=== PATIENT | female | born 1980 | race Caucasian/White ===

== ENCOUNTER 2021-03-07 11:08 | Outpatient (CLI) | payer MEDICARE, MEDICAID, SELFPAY ==
--- NOTE | 2021-03-23 18:15 | WPDHOMESLEEP ---
Sleep Study - Home Unattended Date of Study: 03/07/21 Ordering Provider: Bo Richmond APRN Interpreting Provider: Mone Simth MD Home Sleep Study Type: Apnea Link Air Height: 1.7 m Weight: 113.398 kg Body Mass Index: 39.1 Neck Circumference (inches): 16.75 [place]: 24 Reason for Sleep Study Hypersomnolence Sleep History Mone Contreras is a 40-year-old female who stops breathing when she sleeps. She only sleeps for 1-3 hours at a time. she took a Remeron on the night of this home sleep test and says that she had a wonderful night of sleep. She has difficulty falling asleep, she wakes during the night, she has excessive daytime sleepiness and difficulty waking in the morning. She constantly awakens from sleep feeling short of breath, constantly has heartburn, belching and coughing at night, constantly snores loudly and has trouble sleep with a cold. She constantly gasps for breath during the night. She constantly sweats at night and notices her heart pounding or beating irregularly night. She constantly falls asleep during the day, involuntarily and she constantly falls asleep while driving. She always falls asleep while exerting physical effort. She constantly has loss of muscle tone with strong emotion. She always has problems in the daytime due to excessive sleepiness. She does not feel paralyzed on waking or falling asleep and does not have vivid dreamlike scenes upon awakening or falling asleep. She constantly is afraid to go to sleep. She constantly has nightmares, always remembers her dreams, always has racing thoughts as well as feelings of sadness, depression and anxiety. She constantly has muscular tension and notices parts of her body jerking. She constantly kicks at night, has crawling and aching feelings in her legs, has leg pain at night, morning jaw pain. She has had all of her teeth extracted but previously did grind her teeth during sleep. She constantly is bothered by pain during the day, awakened by pain at night, wakes up feeling stiff in the morning with sore achy muscles and pain in the neck and spine. She is disabled, has problems with headaches, memory problems, fatigue, panic, concentration difficulties, insomnia and she takes antacids regularly. She has gained weight in the last year, exact amount is not known. Normal bedtime is between 9:00 p.m. and 10:00 p.m. taking an hour or longer to fall asleep. She wakes up between midnight and 2:00 am, will watch television or play games on the phone. It may take her several hours to fall asleep again. She takes naps in the evening or afternoon. A short nap may be refreshing. She is drowsy after waking for 3 hours or longer. She feels the least refreshed in the afternoons. Habits: Tobacco half pack per day. No caffeine, alcohol, or recreational drugs PMFSH Past Medical History Medical History Anxiety Asthma Body mass index (bmi) 38.0-38.9, adult (09/19/18) Chronic migraine Chronic pain syndrome Fibromyalgia GERD (gastroesophageal reflux disease) History of cervical cancer HTN (hypertension) Impaired glucose tolerance Severe bipolar disorder Surgical History Surgical History History of appendectomy History of Family History Family History Father Family history of mental disorder Cerebrovascular accident Family history of Alzheimer's disease Family history of cardiovascular disease Heart disease Mother Hypertension Sibling Heart disease Narcolepsy Daughter Obesity Bipolar disorder Schizophrenia Other Asthma Depression Family history of alcoholism Family history of bipolar disorder Family history of lung disease Family history of malignant neoplasm of uterus Family history of migraine headaches Family history of obesity Family h
[2021-03-23 18:27] VITALS: BMI 39.1
== END 2021-03-08 10:57 | disposition home or self-care (01) ==
LOC: ANHCSM 11:09
PROVIDERS: PCP Family Medicine; Visit Provider Nurse Practitioner Family
DX: G47.10 Hypersomnia, unspecified (principal); G47.33 Obstructive sleep apnea (adult) (pediatric)
CPT/HCPCS: 95806

== ENCOUNTER → 2021-06-03 00:22 | Outpatient (CLI) | payer MEDICARE, MEDICAID, SELFPAY ==
[2021-06-03 18:06] LABS: SARS-CoV-2 RNA PCR Negative
== END ==
PROVIDERS: PCP Family Medicine; Visit Provider Internal Medicine Critical Care Medicine
DX: Z01.812 Encounter for preprocedural laboratory examination (principal); Z20.822 Contact with and (suspected) exposure to COVID-19
CPT/HCPCS: C9803; U0003; U0005

== ENCOUNTER 2021-06-06 07:38 | Outpatient (CLI) | payer MEDICARE, MEDICAID, SELFPAY ==
--- NOTE | 2021-06-19 13:40 | WPDSLEEPSTUD ---
Sleep Study Date of Study: 06/06/21 <Kylah Suero, DO - Last Filed: 06/19/21 15:29> Ordering Provider: Bo Richmond APRN <Kylah Suero, DO - Last Filed: 06/19/21 15:29> Interpreting Physician: Kylah Suero DO <Kylah Suero DO - Last Filed: 06/19/21 15:29> Sleep Study Type: CPAP Titration <Kylah Suero DO - Last Filed: 06/19/21 15:29> Height: 1.7 m <Kylah Suero DO - Last Filed: 06/19/21 15:29> Weight: 122.47 kg <Kylah Suero DO - Last Filed: 06/19/21 15:29> Body Mass Index: 42.3 <Kylah Suero DO - Last Filed: 06/19/21 15:29> Neck Circumference (inches): 17 <Kylah Suero DO - Last Filed: 06/19/21 15:29> [place]: 24 <Kylah Suero DO - Last Filed: 06/19/21 15:29> Reason for Sleep Study The patient had a HSAT on 03/07/2021 using ApneaLink that showed an AHI of 40 and a minimum saturation of 40%. It was recommended that she have a PAP Titration. <Kylah Suero, DO - Last Filed: 06/19/21 15:29> Sleep History Mone Contreras is a 40-year-old female who stops breathing when she sleeps. She only sleeps for 1-3 hours at a time. she took a Remeron on the night of this home sleep test and says that she had a wonderful night of sleep. She has difficulty falling asleep, she wakes during the night, she has excessive daytime sleepiness and difficulty waking in the morning. She constantly awakens from sleep feeling short of breath, constantly has heartburn, belching and coughing at night, constantly snores loudly and has trouble sleep with a cold. She constantly gasps for breath during the night. She constantly sweats at night and notices her heart pounding or beating irregularly night. She constantly falls asleep during the day, involuntarily and she constantly falls asleep while driving. She always falls asleep while exerting physical effort. She constantly has loss of muscle tone with strong emotion. She always has problems in the daytime due to excessive sleepiness. She does not feel paralyzed on waking or falling asleep and does not have vivid dreamlike scenes upon awakening or falling asleep. She constantly is afraid to go to sleep. She constantly has nightmares, always remembers her dreams, always has racing thoughts as well as feelings of sadness, depression and anxiety. She constantly has muscular tension and notices parts of her body jerking. She constantly kicks at night, has crawling and aching feelings in her legs, has leg pain at night, morning jaw pain. She has had all of her teeth extracted but previously did grind her teeth during sleep. She constantly is bothered by pain during the day, awakened by pain at night, wakes up feeling stiff in the morning with sore achy muscles and pain in the neck and spine. She is disabled, has problems with headaches, memory problems, fatigue, panic, concentration difficulties, insomnia and she takes antacids regularly. She has gained weight in the last year, exact amount is not known. Normal bedtime is between 9:00 p.m. and 10:00 p.m. taking an hour or longer to fall asleep. She wakes up between midnight and 2:00 am, will watch television or play games on the phone. It may take her several hours to fall asleep again. She takes naps in the evening or afternoon. A short nap may be refreshing. She is drowsy after waking for 3 hours or longer. She feels the least refreshed in the afternoons. Habits: Tobacco half pack per day. No caffeine, alcohol, or recreational drugs <Kylah Suero, - Last Filed: 06/19/21 15:29> [facility] Past Medical History Medical History: Medical History Anxiety Asthma Body mass index (bmi) 38.0-38.9, adult (09/19/18) Chronic migraine Chronic pain syndrome Fibromyalgia GERD (gastroesophageal reflux disease) History of cervical cancer HTN (hypertension)
[2021-06-19 15:10] VITALS: BMI 42.3
== END 2021-06-07 06:26 | disposition home or self-care (01) ==
LOC: ANHCSM 07:39
PROVIDERS: PCP Family Medicine; Visit Provider Nurse Practitioner Family
DX: G47.33 Obstructive sleep apnea (adult) (pediatric) (principal)
CPT/HCPCS: 95811

== ENCOUNTER 2022-03-21 17:23 | Emergency (ER) | payer MEDICARE, MEDICAID, SELFPAY ==
--- NOTE | ~2022-03-21 | XR_ITS ---
EXAMINATION: XR chest 2V Exam Date/Time: 03/21/2022 17:37 CDT HISTORY: chest congestion, cough for 5 days Comparison: 10/31/2017. RESULT: Lines, tubes, and devices: None. Lungs and pleura: Clear. Cardiomediastinal silhouette: Stable. Other: No acute osseous or upper abdominal finding. IMPRESSION: No acute cardiopulmonary process. Reviewed, dictated and finalized at location K.
[2022-03-21 17:34] VITALS: BP 115/65; PULSE 70; RESP 18; TEMP 36.6; O2SAT 98
--- NOTE | 2022-03-21 17:57 | ED.URI ---
HPI - URI/Sore Throat General Chief Complaint: Upper Respiratory Infection Stated Complaint: chest congestiion Time Seen by Provider: 03/21/22 17:45 History of Present Illness HPI Narrative: Mone Contreras is a 41 yo female with a PMH of COPD, current smoking, high cholesterol, hypertension, pancreatitis, IBS, seizures, depression anxiety ,who comes to [facility] with complaints of wheezing and cough. She states that she is coughing up thick yellow mucus. She states that her symptoms started about a week ago and have gradually worsened. she has a senior engineering associate in [place] but is unable to get into his office for 2 weeks but she has adequate albuterol inhaler/nebulizer and her other medication Has not had a COVID-vaccine Related Data Home Medications Medication Instructions Recorded Confirmed atorvastatin 80 mg tablet 80 mg PO DAILY 07/14/19 03/21/22 gabapentin 300 mg capsule 300 mg PO DAILY 07/14/19 03/21/22 omeprazole 20 mg capsule,delayed 40 mg PO DAILY 07/14/19 01/31/21 release venlafaxine 100 mg tablet 100 mg PO TID 07/14/19 03/21/22 aripiprazole 5 mg tablet (Abilify) 5 mg PO DAILY 03/21/22 03/21/22 baclofen 10 mg tablet 10 mg TID 03/21/22 03/21/22 dexmethylphenidate 20 mg 20 mg PO DAILY 03/21/22 03/21/22 capsule,extended release [id number] ferrous sulfate 325 mg (65 mg 325 mg DAILY 03/21/22 03/21/22 iron) tablet (FeroSul) ipratropium bromide 0.02 % 2.5 ml inhalation Q6H 03/21/22 03/21/22 solution for inhalation lamotrigine 200 mg tablet 200 mg BID 03/21/22 03/21/22 lisinopril 40 mg tablet 40 mg DAILY 03/21/22 03/21/22 meloxicam 15 mg tablet 15 mg DAILY 03/21/22 03/21/22 norethindrone acetate 5 mg tablet 5 mg DAILY 03/21/22 03/21/22 triamcinolone acetonide 0.1 % 1 applic topical DIRECTED 03/21/22 03/21/22 topical cream Allergies Allergy/AdvReac Type Severity Reaction Status Date / Time codeine Allergy Mild HIVES,SYNCO Verified 03/21/22 17:43 PE acetaminophen Allergy Unknown RASH Verified 01/31/21 11:31 duloxetine [From Cymbalta] Allergy Other Verified 03/21/22 17:44 varenicline [From Chantix] Allergy Other Verified 03/21/22 17:43 tramadol AdvReac Intermediate itchy, Verified 03/21/22 17:43 dizzy MICONAZOLE NITRATE Allergy Unknown Hives Uncoded 03/21/22 17:43 MUSCLE RELAXER Allergy Unknown Unknown Uncoded 01/31/21 11:31 OXYCODONE HCL Allergy Unknown RASH Uncoded 01/31/21 11:31 Review of Systems Review of Systems: CONSTITUTIONAL: Denies fever, chills, sweats. EYES: Denies visual changes, redness, discharge. ENT: Denies rhinorrhea, congestion, sore throat, otalgia. CARDIOVASCULAR: Denies chest pain, palpitations, edema. RESPIRATORY: Has dyspnea, has wheezing, cough GASTROINTESTINAL: Denies abdominal pain, nausea, vomiting, diarrhea. GENITOURINARY: Denies dysuria, hematuria, abnormal discharge SKIN: Denies rash or itching. NEUROLOGIC: Denies numbness, or focal weakness. PSYCHIATRIC: Denies anxiety or depression. [facility] Past Medical History Medical History Anxiety Asthma Body mass index (bmi) 38.0-38.9, adult (09/19/18) Chronic migraine Chronic pain syndrome COPD (chronic obstructive pulmonary disease) Fibromyalgia GERD (gastroesophageal reflux disease) History of cervical cancer HTN (hypertension) Impaired glucose tolerance Severe bipolar disorder Surgical History Surgical History History of appendectomy History of Family History Family History Father Family history of mental disorder Cerebrovascular accident Family history of Alzheimer's disease Family history of cardiovascular disease Heart disease Mother Hypertension Sibling Heart disease Narcolepsy Daughter Obesity Bipolar disorder Schizophrenia Other Asthma Depression Family history of alcoholism Family
== END 2022-03-21 18:13 | disposition home or self-care (01) ==
PROVIDERS: Emergency Provider Nurse Practitioner; PCP Family Medicine
DX: J44.1 Chronic obstructive pulmonary disease with (acute) exacerbation (principal); F17.210 Nicotine dependence, cigarettes, uncomplicated; M79.7 Fibromyalgia; K21.9 Gastro-esophageal reflux disease without esophagitis; I10 Essential (primary) hypertension; E78.00 Pure hypercholesterolemia, unspecified; G40.909 Epilepsy, unspecified, not intractable, without status epilepticus; F31.9 Bipolar disorder, unspecified; F41.9 Anxiety disorder, unspecified; Z85.41 Personal history of malignant neoplasm of cervix uteri
CPT/HCPCS: 71046; 99213; G0463

== ENCOUNTER 2022-08-09 14:05 | Emergency (ER) | payer MEDICARE, MEDICAID, SELFPAY ==
--- NOTE | ~2022-08-09 | XR_ITS ---
Clinical Indication: Cough PA and lateral views of the chest: Comparison: 03/21/2022 Findings: The lungs are clear, without evidence of focal consolidation or pleural effusion. Cardiome diastinal silhouette is within normal limits. Bones and soft tissues are unremarkable. Impression: Normal chest. Reviewed, dictated and finalized at location [] H MAKER Impression: Normal chest.
[2022-08-09 14:23] VITALS: BP 143/93; PULSE 69; RESP 18; TEMP 36.7; O2SAT 96
--- NOTE | 2022-08-09 15:01 | ED.URI ---
HPI - URI/Sore Throat General Chief Complaint: Upper Respiratory Infection Stated Complaint: Pneumonia like symtoms Time Seen by Provider: 08/09/22 15:01 Source: patient, RN notes reviewed and old records reviewed Mode of arrival: ambulatory Limitations: no limitations History of Present Illness HPI Narrative: 41-year-old female presents to the [facility] with concerns for pneumonia. patient is currently a smoker. Has a significant past medical history. Denies fevers. Reports cough, earaches bilaterally. Symptoms for 3 weeks Related Data Home Medications Medication Instructions Recorded Confirmed atorvastatin 80 mg tablet 80 mg PO DAILY 07/14/19 08/09/22 omeprazole 20 mg capsule,delayed 40 mg PO DAILY 07/14/19 08/09/22 release venlafaxine 100 mg tablet 100 mg PO TID 07/14/19 08/09/22 aripiprazole 5 mg tablet (Abilify) 5 mg PO DAILY 03/21/22 08/09/22 baclofen 10 mg tablet 10 mg TID 03/21/22 08/09/22 dexmethylphenidate 20 mg 20 mg PO DAILY 03/21/22 08/09/22 capsule,extended release [id number] ferrous sulfate 325 mg (65 mg 325 mg DAILY 03/21/22 08/09/22 iron) tablet (FeroSul) ipratropium bromide 0.02 % 2.5 ml inhalation Q6H 03/21/22 08/09/22 solution for inhalation lamotrigine 200 mg tablet 200 mg BID 03/21/22 08/09/22 lisinopril 40 mg tablet 40 mg DAILY 03/21/22 08/09/22 meloxicam 15 mg tablet 15 mg DAILY 03/21/22 08/09/22 norethindrone acetate 5 mg tablet 5 mg DAILY 03/21/22 08/09/22 triamcinolone acetonide 0.1 % 1 applic topical DIRECTED 03/21/22 08/09/22 topical cream acetaminophen 325 mg tablet 4,000 mg PO Q6H PRN Pain 04/05/22 08/09/22 (Tylenol) gabapentin 300 mg capsule 1,100 mg PO DAILY 04/05/22 08/09/22 mirtazapine 15 mg tablet 15 mg DAILY 08/09/22 08/09/22 Allergies Allergy/AdvReac Type Severity Reaction Status Date / Time codeine Allergy Mild HIVES,SYNCO Verified 08/09/22 15:16 PE acetaminophen Allergy Unknown RASH Verified 08/09/22 15:16 duloxetine [From Cymbalta] Allergy Other Verified 08/09/22 15:16 oxycodone [From Percocet] Allergy Rash Verified 08/09/22 15:16 varenicline [From Chantix] Allergy Other Verified 08/09/22 15:16 fluticasone AdvReac Intermediate lumps on Verified 08/09/22 15:16 tongue tramadol AdvReac Intermediate itchy, Verified 08/09/22 15:16 dizzy MICONAZOLE NITRATE Allergy Unknown Hives Uncoded 08/09/22 15:16 MUSCLE RELAXER Allergy Unknown Unknown Uncoded 08/09/22 15:16 OXYCODONE HCL Allergy Unknown RASH Uncoded 08/09/22 15:16 Review of Systems Review of Systems: All systems reviewed & are unremarkable except as noted in HPI and below Constitutional: Constitutional: Reports no additional constitutional complaints Eyes: Eyes: Reports no additional eye complaints ENT: Reports as per HPI Cardiovascular: Cardiovascular: Reports no additional cardiovascular complaints, Denies chest pain and Denies dyspnea Respiratory: Respiratory: Reports as per HPI, Reports chest congestion, Reports cough and Reports dyspnea Gastrointestinal: Gastrointestinal: Reports no additional gastrointestinal complaints, Denies abdominal pain, Denies nausea and Denies vomiting Musculoskeletal: Musculoskeletal: Reports no additional musculoskeletal complaints Integumentary/Breasts: Skin/Breast: Reports system reviewed and no additional complaints, except as docu Neurologic: Reports system reviewed and no additional complaints, except as documented Psychiatric: Psychiatric: Reports no additional psychiatric complaints Allergic/Immunologic: Allergic/Immunologic: Reports no additional allergic/immunologic complaints PMFSH Past Medical History Medical History Anxiety Asthma Body mass index (bmi) 38.0-38.9, adult (09/19/18) Chronic migraine Chronic pain syndrome COPD (chronic obstructive pulmonary disease) Fibromyalgia GERD (gastroesophageal reflux disease) History of cervical cancer HTN (hypertension) Impaired
--- NOTE | 2022-08-09 15:06 | ED.URI ---
HPI - URI/Sore Throat General Chief Complaint: Upper Respiratory Infection Stated Complaint: Pneumonia like symtoms Time Seen by Provider: 08/09/22 15:01 Source: patient, RN notes reviewed and old records reviewed Mode of arrival: ambulatory Limitations: no limitations Related Data Home Medications Medication Instructions Recorded Confirmed atorvastatin 80 mg tablet 80 mg PO DAILY 07/14/19 07/26/22 omeprazole 20 mg capsule,delayed 40 mg PO DAILY 07/14/19 07/26/22 release venlafaxine 100 mg tablet 100 mg PO TID 07/14/19 07/26/22 aripiprazole 5 mg tablet (Abilify) 5 mg PO DAILY 03/21/22 07/26/22 baclofen 10 mg tablet 10 mg TID 03/21/22 07/26/22 dexmethylphenidate 20 mg 20 mg PO DAILY 03/21/22 07/26/22 capsule,extended release [id number] ferrous sulfate 325 mg (65 mg 325 mg DAILY 03/21/22 07/26/22 iron) tablet (FeroSul) ipratropium bromide 0.02 % 2.5 ml inhalation Q6H 03/21/22 07/26/22 solution for inhalation lamotrigine 200 mg tablet 200 mg BID 03/21/22 07/26/22 lisinopril 40 mg tablet 40 mg DAILY 03/21/22 07/26/22 meloxicam 15 mg tablet 15 mg DAILY 03/21/22 07/26/22 norethindrone acetate 5 mg tablet 5 mg DAILY 03/21/22 07/26/22 triamcinolone acetonide 0.1 % 1 applic topical DIRECTED 03/21/22 07/26/22 topical cream acetaminophen 325 mg tablet 4,000 mg PO Q6H PRN 04/05/22 07/26/22 (Tylenol) gabapentin 300 mg capsule 1,100 mg PO DAILY 04/05/22 07/26/22 Allergies Allergy/AdvReac Type Severity Reaction Status Date / Time codeine Allergy Mild HIVES,SYNCO Verified 07/26/22 10:46 PE acetaminophen Allergy Unknown RASH Verified 07/26/22 10:46 duloxetine [From Cymbalta] Allergy Other Verified 07/26/22 10:46 varenicline [From Chantix] Allergy Other Verified 07/26/22 10:46 fluticasone AdvReac Intermediate lumps on Verified 07/26/22 10:46 tongue tramadol AdvReac Intermediate itchy, Verified 07/26/22 10:46 dizzy MICONAZOLE NITRATE Allergy Unknown Hives Uncoded 07/26/22 10:46 MUSCLE RELAXER Allergy Unknown Unknown Uncoded 07/26/22 10:46 OXYCODONE HCL Allergy Unknown RASH Uncoded 07/26/22 10:46 PMFSH Past Medical History Medical History Anxiety Asthma Body mass index (bmi) 38.0-38.9, adult (09/19/18) Chronic migraine Chronic pain syndrome COPD (chronic obstructive pulmonary disease) Fibromyalgia GERD (gastroesophageal reflux disease) History of cervical cancer HTN (hypertension) Impaired glucose tolerance Severe bipolar disorder Surgical History Surgical History History of appendectomy History of Family History Family History Father Family history of mental disorder Cerebrovascular accident Family history of Alzheimer's disease Family history of cardiovascular disease Heart disease Mother Hypertension Sibling Heart disease Narcolepsy Daughter Obesity Bipolar disorder Schizophrenia Other Asthma Depression Family history of alcoholism Family history of bipolar disorder Family history of lung disease Family history of malignant neoplasm of uterus Family history of migraine headaches Family history of obesity Family history of schizophrenia Family history of seizure disorder Social History Social History (Updated 07/26/22 @ 10:48 by Marie Montero MA) Smoking packs per day: 1 Smoking cigarettes per day: 20.0 Years smoked: 33 Smoking pack-years: 33.00 Smoking status: Current every day smoker Tobacco type: cigarettes Second hand tobacco smoke exposure: Yes Alcohol intake: never Course Vital Signs Vital signs: Vital Signs Temperature 98.1 F 08/09/22 14:23 Pulse Rate 69 08/09/22 14:23 Respiratory Rate 18 08/09/22 14:23 Blood Pressure 143/93 H 08/09/22 14:23 Pulse Oximetry 96 08/09/22 14:23 Oxygen Delivery Room Air 08/09/22 14:
== END 2022-08-09 15:55 | disposition home or self-care (01) ==
PROVIDERS: Emergency Provider Nurse Practitioner; PCP Family Medicine
DX: J06.9 Acute upper respiratory infection, unspecified (principal); J40 Bronchitis, not specified as acute or chronic; F17.210 Nicotine dependence, cigarettes, uncomplicated; J44.9 Chronic obstructive pulmonary disease, unspecified; M79.7 Fibromyalgia; I10 Essential (primary) hypertension; F41.9 Anxiety disorder, unspecified; Z85.41 Personal history of malignant neoplasm of cervix uteri; R73.01 Impaired fasting glucose; F31.89 Other bipolar disorder
CPT/HCPCS: 71046; 99213; G0463

== ENCOUNTER 2023-04-04 10:33 | Outpatient (CLI) | payer MEDICARE, MEDICAID, SELFPAY ==
--- NOTE | ~2023-04-04 | US_ITS ---
EXAMINATION: US pelvic complete w TV DATE: 04/04/2023 11:39 INDICATION: UTERINE LEIOMA EXCESSIVE AND FREQUENT MENSTRUATION TECHNIQUE: Multiple transabdominal and endovaginal sonographic images of the pelvis were obtained. COMPARISON: None. FINDINGS: Uterus: 9.7 x 4.6 x 6.1 cm. 1.9 cm circumscribed, mixed echogenicity soft tissue lesion in the myomet rium of the posterior uterine body. rEndometrial complex not clearly visualized. Right Ovary: Not visualized. Left Ovary: Not visualized. There is no free fluid in the pelvis. IMPRESSION: Limited examination. Bilateral ovaries not visualized. Endometrial stripe not visualized. 1.9 cm intr amural fibroid. Reviewed, dictated and finalized at location K. IMPRESSION: Limited examination. Bilateral ovaries not visualized. Endometrial stripe not v isualized. 1.9 cm intramural fibroid.
[2023-04-04 12:13] LABS: Basophils Absolute Auto 0.1 K/mm3 (0.0-0.1); Basophils Percent Auto 0.8 % (0.2-1.2); Eosinophils Absolute Auto 0.1 K/mm3 (0-0.3); Eosinophils Percent Auto 1.6 % (0-4.4); Hemoglobin 12.6 g/dL (12.0-15.0); Immature Granulocyte Absolute 0.03 K/mm3 (0.00-0.031); Immature Granulocyte Percent A 0.3 % (0-0.5); Lymphocytes Percent Auto 30.8 % (18.3-44.2); Mean Corpuscular HGB Conc 32.3 g/dl (32-36); Mean Corpuscular Hemoglobin 32.1 pg (26-34); Mean Corpuscular Volume 99.2 fl (80-100); Mean Platelet Volume 8.8 fl (7.4-10.4); Monocytes Absolute Auto 0.6 K/mm3 (0.1-0.6); Monocytes Percent Auto 6.5 % (2.6-8.5); Neutrophils Absolute Auto 5.3 K/mm3 (1.3-6.7); Platelet Count Result 306 k/mm3 (150-375); Red Blood Count 3.93 M/mm3 (4.2-5.4); Red Cell Distribution Width 13.8 % (11.5-14.5); White Blood Count 8.8 K/mm3 (4.5-10.0)
[2023-04-04 12:27] LABS: Iron 114 ug/dL (37-170)
[2023-04-04 12:36] LABS: Percent Iron Saturation 31 % (20-50)
== END 2023-04-04 10:34 | disposition home or self-care (01) ==
PROVIDERS: PCP Family Medicine; Visit Provider Physician Assistant
DX: D25.9 Leiomyoma of uterus, unspecified (principal); Z12.31 Encounter for screening mammogram for malignant neoplasm of breast; N92.0 Excessive and frequent menstruation with regular cycle
CPT/HCPCS: 36415; 76830; 76856; 83540; 83550; 85025

== ENCOUNTER 2023-11-09 16:31 | Emergency (ER) | payer MEDICARE, MEDICAID, SELFPAY ==
[2023-11-09 16:44] VITALS: BP 110/70; PULSE 67; RESP 18; TEMP 36.5; O2SAT 98
--- NOTE | 2023-11-09 16:44 | ED.URI ---
HPI - URI/Sore Throat General Chief Complaint: Upper Respiratory Infection Stated Complaint: Bilateral Ear Irritation,Headache,Congestion Time Seen by Provider: 11/09/23 16:48 Source: patient Mode of arrival: ambulatory Limitations: no limitations History of Present Illness HPI Narrative: Mone is a 43-year-old female patient presenting to the clinic today with complaints of bilateral ear pain, headache, cough, and congestion x2 weeks. She reports also reporting a sore to the top of her tongue. Reports that she thinks she jammed herself with a chip. Sore on the top of the tongue is been going on for 6 months. She is a current smoker 1 pack per day for over 33 years MD elicited complaint: cough, sore throat, nasal congestion and other (Ear pain, headache) Related Data Home Medications Medication Instructions Recorded Confirmed atorvastatin 80 mg tablet 80 mg PO DAILY 07/14/19 09/26/23 omeprazole 20 mg capsule,delayed 40 mg PO DAILY 07/14/19 09/26/23 release venlafaxine 100 mg tablet 100 mg PO TID 07/14/19 09/26/23 aripiprazole 5 mg tablet (Abilify) 5 mg PO DAILY 03/21/22 09/26/23 baclofen 10 mg tablet 10 mg TID 03/21/22 09/26/23 ferrous sulfate 325 mg (65 mg 325 mg DAILY 03/21/22 09/26/23 iron) tablet (FeroSul) ipratropium bromide 0.02 % 2.5 ml inhalation Q6H 03/21/22 09/26/23 solution for inhalation lamotrigine 200 mg tablet 200 mg BID 03/21/22 09/26/23 lisinopril 40 mg tablet 40 mg DAILY 03/21/22 09/26/23 meloxicam 15 mg tablet 15 mg DAILY 03/21/22 09/26/23 norethindrone acetate 5 mg tablet 5 mg DAILY 03/21/22 09/26/23 triamcinolone acetonide 0.1 % 1 applic topical DIRECTED 03/21/22 09/26/23 topical cream acetaminophen 325 mg tablet 4,000 mg PO Q6H PRN Pain 04/05/22 09/26/23 (Tylenol) gabapentin 300 mg capsule 1,100 mg PO DAILY 04/05/22 09/26/23 mirtazapine 15 mg tablet 15 mg DAILY 08/09/22 09/26/23 dexmethylphenidate 20 mg 20 mg PO DAILY 09/26/23 09/26/23 capsule,extended release [id number] Allergies Allergy/AdvReac Type Severity Reaction Status Date / Time codeine Allergy Mild HIVES,SYNCO Verified 11/09/23 16:45 PE acetaminophen Allergy Unknown RASH Verified 11/09/23 16:45 duloxetine [From Cymbalta] Allergy Other Verified 11/09/23 16:45 oxycodone [From Percocet] Allergy Rash Verified 11/09/23 16:45 varenicline [From Chantix] Allergy Other Verified 11/09/23 16:45 fluticasone AdvReac Intermediate lumps on Verified 11/09/23 16:45 tongue tramadol AdvReac Intermediate itchy, Verified 11/09/23 16:45 dizzy MICONAZOLE NITRATE Allergy Unknown Hives Uncoded 11/09/23 16:45 MUSCLE RELAXER Allergy Unknown Unknown Uncoded 11/09/23 16:45 OXYCODONE HCL Allergy Unknown RASH Uncoded 11/09/23 16:45 Review of Systems Review of Systems: Pertinent positives per HPI. Patient denies any fever, chills, rash, visual changes, dizziness, chest pain, palpitations, nausea, vomiting, diarrhea, constipation, abdominal pain, or any urinary issues. [facility] Past Medical History Medical History Anxiety Asthma Body mass index (bmi) 38.0-38.9, adult (09/19/18) Chronic migraine Chronic pain syndrome COPD (chronic obstructive pulmonary disease) Fibromyalgia GERD (gastroesophageal reflux disease) History of cervical cancer HTN (hypertension) Impaired glucose tolerance Severe bipolar disorder Surgical History Surgical History History of appendectomy History of Family History Family History Father Family history of mental disorder Cerebrovascular accident Family history of Alzheimer's disease Family history of cardiovascular disease Heart disease Mother Hypertension Sibling Heart disease Narcolepsy Daughter Obesity Bipolar disorder Schizophrenia Other Asthma Depression Family histor
[2023-11-09 16:46] VITALS: BP 110/70; PULSE 67; RESP 18; TEMP 36.5; O2SAT 98
== END 2023-11-09 17:10 | disposition home or self-care (01) ==
PROVIDERS: Emergency Provider Nurse Practitioner Family; PCP Family Medicine
DX: J32.9 Chronic sinusitis, unspecified (principal); J40 Bronchitis, not specified as acute or chronic; K14.8 Other diseases of tongue; F17.210 Nicotine dependence, cigarettes, uncomplicated; J44.9 Chronic obstructive pulmonary disease, unspecified; M79.7 Fibromyalgia; K21.9 Gastro-esophageal reflux disease without esophagitis; I10 Essential (primary) hypertension; F31.9 Bipolar disorder, unspecified; F41.9 Anxiety disorder, unspecified; Z85.41 Personal history of malignant neoplasm of cervix uteri
CPT/HCPCS: 99213; G0463

== ENCOUNTER 2023-11-19 11:46 | Emergency (ER) | payer MEDICARE, MEDICAID, SELFPAY ==
[2023-11-19] VITALS (23 sets, daily range): BP systolic 93–117; BP diastolic 56–72; PULSE 62–82; RESP 19–36; TEMP 36.4; O2SAT 91–97
--- NOTE | ~2023-11-19 | XR_ITS ---
EXAMINATION: XR chest 1V portable DATE: 11/19/2023 12:35 INDICATION: Cough. TECHNIQUE: A single frontal view of the chest was obtained. COMPARISON: Chest 2 views 08/09/2022, CT abdomen and pelvis 08/29/2011 FINDINGS: There are airspace opacities in the lower lung zones. No pleural effusion or pneumothorax. The heart size is normal. IMPRESSION: 1. Airspace opacities in the lower lung zones, consistent with atelectasis versus pneumonia. Reviewed, dictated and finalized at location E. IMPRESSION: 1. Airspace opacities in the lower lung zones, consistent with atelectasis vers us pneumonia.
--- NOTE | 2023-11-19 12:03 | PC.NURSE ---
Agree with assessments by Adrienne Hernandes nursing consultant.
--- NOTE | 2023-11-19 12:26 | ED.URI ---
HPI - URI/Sore Throat General Chief Complaint: Upper Respiratory Infection Stated Complaint: cough/pneumonia Time Seen by Provider: 11/19/23 12:16 Source: patient Mode of arrival: ambulatory Limitations: no limitations History of Present Illness HPI Narrative: This is a 43 year old female that presents to the ER for continued cold symptoms. Reports she was seen at Urgent care a couple of weeks ago. Diagnosed with sinusitis and started on Augmentin. She was then evaluated at [facility] last week for continued symptoms and diagnosed with pneumonia and started on a Z pack. She has had worsening fatigue, myalgias, cough, chills, shortness of breath/wheezing the last couple of days. History of COPD and is still a smoker. She has been using her inhaler with little relief. Denies chest pain or lower extremity edema. Related Data Home Medications Medication Instructions Recorded Confirmed atorvastatin 80 mg tablet 80 mg PO DAILY 07/14/19 09/26/23 omeprazole 20 mg capsule,delayed 40 mg PO DAILY 07/14/19 09/26/23 release venlafaxine 100 mg tablet 100 mg PO TID 07/14/19 09/26/23 aripiprazole 5 mg tablet (Abilify) 5 mg PO DAILY 03/21/22 09/26/23 baclofen 10 mg tablet 10 mg TID 03/21/22 09/26/23 ferrous sulfate 325 mg (65 mg 325 mg DAILY 03/21/22 09/26/23 iron) tablet (FeroSul) ipratropium bromide 0.02 % 2.5 ml inhalation Q6H 03/21/22 09/26/23 solution for inhalation lamotrigine 200 mg tablet 200 mg BID 03/21/22 09/26/23 lisinopril 40 mg tablet 40 mg DAILY 03/21/22 09/26/23 meloxicam 15 mg tablet 15 mg DAILY 03/21/22 09/26/23 norethindrone acetate 5 mg tablet 5 mg DAILY 03/21/22 09/26/23 triamcinolone acetonide 0.1 % 1 applic topical DIRECTED 03/21/22 09/26/23 topical cream acetaminophen 325 mg tablet 4,000 mg PO Q6H PRN Pain 04/05/22 09/26/23 (Tylenol) gabapentin 300 mg capsule 1,100 mg PO DAILY 04/05/22 09/26/23 mirtazapine 15 mg tablet 15 mg DAILY 08/09/22 09/26/23 dexmethylphenidate 20 mg 20 mg PO DAILY 09/26/23 09/26/23 capsule,extended release [id number] Allergies Allergy/AdvReac Type Severity Reaction Status Date / Time codeine Allergy Mild HIVES,SYNCO Verified 11/19/23 13:03 PE acetaminophen Allergy Unknown RASH Verified 11/19/23 13:03 duloxetine [From Cymbalta] Allergy Other Verified 11/19/23 13:03 oxycodone [From Percocet] Allergy Rash Verified 11/19/23 13:03 varenicline [From Chantix] Allergy Other Verified 11/19/23 13:03 fluticasone AdvReac Intermediate lumps on Verified 11/19/23 13:03 tongue tramadol AdvReac Intermediate itchy, Verified 11/19/23 13:03 dizzy MICONAZOLE NITRATE Allergy Unknown Hives Uncoded 11/19/23 13:03 MUSCLE RELAXER Allergy Unknown Unknown Uncoded 11/19/23 13:03 OXYCODONE HCL Allergy Unknown RASH Uncoded 11/19/23 13:03 Review of Systems Review of Systems: CONSTITUTIONAL: Reports chills, sweats. ENT: Reports rhinorrhea, congestion, sore throat CARDIOVASCULAR: Denies chest pain, or edema. RESPIRATORY: Reports cough and dyspnea. All systems reviewed & are unremarkable except as noted in HPI and below PMFSH Past Medical History Medical History Anxiety Asthma Body mass index (bmi) 38.0-38.9, adult (09/19/18) Chronic migraine Chronic pain syndrome COPD (chronic obstructive pulmonary disease) Fibromyalgia GERD (gastroesophageal reflux disease) History of cervical cancer HTN (hypertension) Impaired glucose tolerance Severe bipolar disorder Surgical History Surgical History History of appendectomy History of Family History Family History Father Family history of mental disorder Cerebrovascular accident Family history of Alzheimer's disease Family history of cardiovascular disease Heart disease Mother Hypertension Sibling Heart disease Narcoleps
[2023-11-19] MEDS: methylPREDNISolone SOD SUCC 125 MG VIAL IV PUSH (12:34)
[2023-11-19] MEDS: IPRATROPIUM 0.5 MG/ALBUTEROL SULFATE 2.5 MG AMPUL.NEB 3 ML INHALATION (12:37)
[2023-11-19 12:41] LABS: Basophils Percent Auto 0.7 % (0.2-1.2); Eosinophils Percent Auto 0.2 % (0-4.4); Hemoglobin 13.9 g/dL (12.0-15.0); Immature Granulocyte Absolute 0.03 K/mm3 (0.00-0.031); Immature Granulocyte Percent A 0.7 % (0-0.5); Lymphocytes Absolute Auto 0.83 K/mm3 (0.9-3.2); Lymphocytes Percent Auto 18.4 % (18.3-44.2); Mean Corpuscular HGB Conc 32.3 g/dl (32-36); Mean Corpuscular Volume 99.1 fl (80-100); Mean Platelet Volume 9.3 fl (7.4-10.4); Monocytes Absolute Auto 0.6 K/mm3 (0.1-0.6); Monocytes Percent Auto 13.9 % (2.6-8.5); Neutrophils Percent Auto 66.1 % (45.5-73.1); Platelet Count Result 203 k/mm3 (150-375); Red Blood Count 4.34 M/mm3 (4.2-5.4); Red Cell Distribution Width 13.5 % (11.5-14.5); White Blood Count 4.5 K/mm3 (4.5-10.0)
[2023-11-19 12:49] LABS: Anion Gap 6 mmol/L (4-12); Blood Urea Nitrogen 11 mg/dL (7-17); Calcium 8.9 mg/dL (8.4-10.2); Carbon Dioxide 23 mmol/L (22-30); Chloride 106 mmol/L (98-107); Estimated CRCL calculation 104 ml/min; Estimated Glomerular Filt Rate > 60; Glucose 89 mg/dL (65-110); Potassium 4.1 mmol/L (3.4-5.0); Sodium 135 mmol/L (137-145)
[2023-11-19] MEDS: KETOROLAC 15 MG/ML VIAL (*BKC) IV PUSH (13:03)
[2023-11-19 13:04] LABS: Strep Group A RT-PCR NOT DETECTED (Negative)
[2023-11-19 13:15] LABS: Influenza A QL RT-PCR Positive (Negative); Influenza B QL RT-PCR Negative (Negative); RSV RNA, RT-PCR Negative (Negative); SARS-CoV-2 RNA PCR Negative (Negative)
== END 2023-11-19 14:41 | disposition home or self-care (01) ==
PROVIDERS: Emergency Provider Physician Assistant; PCP Family Medicine
DX: J10.1 Influenza due to other identified influenza virus with other respiratory manifestations (principal); J44.1 Chronic obstructive pulmonary disease with (acute) exacerbation; Z20.822 Contact with and (suspected) exposure to COVID-19; F17.210 Nicotine dependence, cigarettes, uncomplicated; F41.9 Anxiety disorder, unspecified; K21.9 Gastro-esophageal reflux disease without esophagitis; I10 Essential (primary) hypertension
CPT/HCPCS: 36415; 71045; 80048; 85025; 87637; 87651; 94640; 96374; 96375; 99284; J1885; J2930

== ENCOUNTER 2023-11-28 16:01 | Emergency (ER) | payer MEDICARE, MEDICAID, SELFPAY ==
--- NOTE | ~2023-11-28 | XR_ITS ---
EXAMINATION: XR chest 2V DATE: 11/28/2023 17:26 INDICATION: Shortness of breath. Cough. TECHNIQUE: Frontal and lateral views of the chest were obtained. COMPARISON: Chest single view 11/19/2023 FINDINGS: There is no pneumonia, pleural effusion, or pneumothorax. The heart size is normal. IMPRESSION: 1. No acute cardiopulmonary disease. Reviewed, dictated and finalized at location A.
[2023-11-28 16:02] VITALS: BP 137/83; PULSE 78; RESP 19; TEMP 36; O2SAT 96
--- NOTE | 2023-11-28 17:34 | ECG_ITS ---
Measurements Intervals [place] Rate: 70 P: 45 MO: 149 QRS: 3 QRSD: 94 T: 59 QT: 384 QTc: 414 Interpretive Statements SINUS RHYTHM LOW QRS VOLTAGE IN PRECORDIAL LEADS [QRS DEFLECTION < 1.0 mV IN CHEST LEADS] NONSPECIFIC T-WAVE ABNORMALITY ABNORMAL ECG NO PREVIOUS ECG AVAILABLE FOR COMPARISON Electronically Signed On 11-29-2023 7:40:02 CDT by Skip Ayala M.D.
--- NOTE | 2023-11-28 17:36 | ED.WEAKNESS ---
HPI - Weakness General Chief complaint: Weakness Stated complaint: weakness Time Seen by Provider: 11/28/23 17:13 Source: patient Mode of arrival: ambulatory Limitations: no limitations History of Present Illness HPI Narrative: This is a 43 year old female that presents to the ER for continued cold symptoms. Was recently seen in the ER and diagnosed with influenza A. She finished Tamiflu and a steroid. Reports she has continued to have fever, cough, and sore throat. Also reports a lesion on her tongue that has been present for a couple of months that is becoming painful. Reports wheezing and shortness of breath. History of COPD. Denies chest pain or lower extremity edema. Related Data Home Medications Medication Instructions Recorded Confirmed atorvastatin 80 mg tablet 80 mg PO DAILY 07/14/19 09/26/23 omeprazole 20 mg capsule,delayed 40 mg PO DAILY 07/14/19 09/26/23 release venlafaxine 100 mg tablet 100 mg PO TID 07/14/19 09/26/23 aripiprazole 5 mg tablet (Abilify) 5 mg PO DAILY 03/21/22 09/26/23 baclofen 10 mg tablet 10 mg TID 03/21/22 09/26/23 ferrous sulfate 325 mg (65 mg 325 mg DAILY 03/21/22 09/26/23 iron) tablet (FeroSul) ipratropium bromide 0.02 % 2.5 ml inhalation Q6H 03/21/22 09/26/23 solution for inhalation lamotrigine 200 mg tablet 200 mg BID 03/21/22 09/26/23 lisinopril 40 mg tablet 40 mg DAILY 03/21/22 09/26/23 meloxicam 15 mg tablet 15 mg DAILY 03/21/22 09/26/23 norethindrone acetate 5 mg tablet 5 mg DAILY 03/21/22 09/26/23 triamcinolone acetonide 0.1 % 1 applic topical DIRECTED 03/21/22 09/26/23 topical cream acetaminophen 325 mg tablet 4,000 mg PO Q6H PRN Pain 04/05/22 09/26/23 (Tylenol) gabapentin 300 mg capsule 1,100 mg PO DAILY 04/05/22 09/26/23 mirtazapine 15 mg tablet 15 mg DAILY 08/09/22 09/26/23 dexmethylphenidate 20 mg 20 mg PO DAILY 09/26/23 09/26/23 capsule,extended release [id number] Allergies Allergy/AdvReac Type Severity Reaction Status Date / Time codeine Allergy Mild HIVES,SYNCO Verified 11/28/23 16:57 PE acetaminophen Allergy Unknown RASH Verified 11/28/23 16:57 duloxetine [From Cymbalta] Allergy Other Verified 11/28/23 16:57 oxycodone [From Percocet] Allergy Rash Verified 11/28/23 16:57 varenicline [From Chantix] Allergy Other Verified 11/28/23 16:57 fluticasone AdvReac Intermediate lumps on Verified 11/28/23 16:57 tongue tramadol AdvReac Intermediate itchy, Verified 11/28/23 16:57 dizzy MICONAZOLE NITRATE Allergy Unknown Hives Uncoded 11/28/23 16:57 MUSCLE RELAXER Allergy Unknown Unknown Uncoded 11/28/23 16:57 OXYCODONE HCL Allergy Unknown RASH Uncoded 11/28/23 16:57 Review of Systems Review of Systems: CONSTITUTIONAL: Reports fever ENT: Reports congestion, sore throat CARDIOVASCULAR: Denies chest pain, or edema. RESPIRATORY: Reports cough and dyspnea. All systems reviewed & are unremarkable except as noted in HPI and below PMFSH Past Medical History Medical History Anxiety Asthma Body mass index (bmi) 38.0-38.9, adult (09/19/18) Chronic migraine Chronic pain syndrome COPD (chronic obstructive pulmonary disease) Fibromyalgia GERD (gastroesophageal reflux disease) History of cervical cancer HTN (hypertension) Impaired glucose tolerance Severe bipolar disorder Surgical History Surgical History History of appendectomy History of Family History Family History Father Family history of mental disorder Cerebrovascular accident Family history of Alzheimer's disease Family history of cardiovascular disease Heart disease Mother Hypertension Sibling Heart disease Narcolepsy Daughter Obesity Bipolar disorder Schizophrenia Other Asthma Depression Family history of alcoholism Family history of bipolar disorder Family his
[2023-11-28] MEDS: IPRATROPIUM 0.5 MG/ALBUTEROL SULFATE 2.5 MG AMPUL.NEB 3 ML INHALATION (17:40)
[2023-11-28 17:41] VITALS: PULSE 73; RESP 22
[2023-11-28 17:52] VITALS: PULSE 78; RESP 20
[2023-11-28 18:08] LABS: Basophils Absolute Auto 0.1 K/mm3 (0.0-0.1); Basophils Percent Auto 0.5 % (0.2-1.2); Eosinophils Absolute Auto 0.1 K/mm3 (0-0.3); Eosinophils Percent Auto 0.9 % (0-4.4); Hematocrit 39.5 % (37.0-47.0); Immature Granulocyte Absolute 0.09 K/mm3 (0.00-0.031); Immature Granulocyte Percent A 0.9 % (0-0.5); Lymphocytes Absolute Auto 2.85 K/mm3 (0.9-3.2); Mean Corpuscular HGB Conc 32.9 g/dl (32-36); Mean Corpuscular Hemoglobin 31.9 pg (26-34); Mean Corpuscular Volume 96.8 fl (80-100); Monocytes Absolute Auto 0.6 K/mm3 (0.1-0.6); Monocytes Percent Auto 6.7 % (2.6-8.5); Neutrophils Absolute Auto 5.8 K/mm3 (1.3-6.7); Platelet Count Result 315 k/mm3 (150-375); Red Blood Count 4.08 M/mm3 (4.2-5.4); Red Cell Distribution Width 13.1 % (11.5-14.5); White Blood Count 9.5 K/mm3 (4.5-10.0)
[2023-11-28 18:19] LABS: Alanine Aminotransferase 25 U/L (6-35); Albumin Level 4.2 g/dL (3.5-5.1); Alkaline Phosphatase 73 U/L (38-126); Anion Gap 6 mmol/L (4-12); Aspartate Amino Transferase 21 U/L (14-36); Bilirubin,Total 0.3 mg/dL (0.2-1.3); Blood Urea Nitrogen 14 mg/dL (7-17); Calcium 9.3 mg/dL (8.4-10.2); Carbon Dioxide 22 mmol/L (22-30); Chloride 110 mmol/L (98-107); Estimated CRCL calculation 119 ml/min; Estimated Glomerular Filt Rate > 60; Glucose 124 mg/dL (65-110); Potassium 3.8 mmol/L (3.4-5.0); Sodium 138 mmol/L (137-145)
[2023-11-28 18:35] LABS: Monoscreen Negative (Negative); Negative Monotest Control Negative (Negative); Positive Monotest Control Positive (Positive)
[2023-11-28 18:42] LABS: Strep Group A RT-PCR NOT DETECTED (Negative)
[2023-11-28 18:54] LABS: Troponin I < 0.012 ng/mL (0.000-0.034)
[2023-11-28 19:50] VITALS: BP 137/78; PULSE 74; RESP 20; O2SAT 97
== END 2023-11-28 19:51 | disposition home or self-care (01) ==
PROVIDERS: Emergency Provider Physician Assistant; PCP Family Medicine
DX: J06.9 Acute upper respiratory infection, unspecified (principal); K14.8 Other diseases of tongue; I10 Essential (primary) hypertension; J44.9 Chronic obstructive pulmonary disease, unspecified; M79.7 Fibromyalgia; K21.9 Gastro-esophageal reflux disease without esophagitis; G89.4 Chronic pain syndrome; F41.9 Anxiety disorder, unspecified; F31.9 Bipolar disorder, unspecified; F17.210 Nicotine dependence, cigarettes, uncomplicated; R94.31 Abnormal electrocardiogram [ECG] [EKG]
CPT/HCPCS: 36415; 71046; 80053; 84484; 85025; 86308; 87651; 93005; 94640; 99284

== ENCOUNTER 2024-03-23 14:36 | Emergency (ER) | payer MEDICARE, MEDICAID, SELFPAY ==
[2024-03-23 14:43] VITALS: BP 154/102; PULSE 91; RESP 18; TEMP 36.6; O2SAT 97
--- NOTE | 2024-03-23 15:54 | ED.GENADULT ---
HPI - General Adult General Chief complaint: Unspecified Stated complaint: neck pain Time Seen by Provider: 03/23/24 15:40 History of Present Illness HPI narrative: 43-year-old female present to the emergency department for evaluation for ear pain and sinus pressure. Patient states over the last few days she felt like she has had swelling of her neck and back of her head. Patient has had increased ear pressure bilaterally increased sinus pressure. Patient reports that she has longstanding issues with cervical radiculopathy and has paresthesias down her left arm and those have been unchanged in the last 3 years. Related Data Home Medications Medication Instructions Recorded Confirmed atorvastatin 80 mg tablet 80 mg PO DAILY 07/14/19 09/26/23 omeprazole 20 mg capsule,delayed 40 mg PO DAILY 07/14/19 09/26/23 release venlafaxine 100 mg tablet 100 mg PO TID 07/14/19 09/26/23 aripiprazole 5 mg tablet (Abilify) 5 mg PO DAILY 03/21/22 09/26/23 baclofen 10 mg tablet 10 mg TID 03/21/22 09/26/23 ferrous sulfate 325 mg (65 mg 325 mg DAILY 03/21/22 09/26/23 iron) tablet (FeroSul) ipratropium bromide 0.02 % 2.5 ml inhalation Q6H 03/21/22 09/26/23 solution for inhalation lamotrigine 200 mg tablet 200 mg BID 03/21/22 09/26/23 lisinopril 40 mg tablet 40 mg DAILY 03/21/22 09/26/23 meloxicam 15 mg tablet 15 mg DAILY 03/21/22 09/26/23 norethindrone acetate 5 mg tablet 5 mg DAILY 03/21/22 09/26/23 triamcinolone acetonide 0.1 % 1 applic topical DIRECTED 03/21/22 09/26/23 topical cream acetaminophen 325 mg tablet 4,000 mg PO Q6H PRN Pain 04/05/22 09/26/23 (Tylenol) gabapentin 300 mg capsule 1,100 mg PO DAILY 04/05/22 09/26/23 mirtazapine 15 mg tablet 15 mg DAILY 08/09/22 09/26/23 dexmethylphenidate 20 mg 20 mg PO DAILY 09/26/23 09/26/23 capsule,extended release -[id number] Allergies Allergy/AdvReac Type Severity Reaction Status Date / Time codeine Allergy Mild HIVES,SYNCO Verified 03/23/24 14:39 PE acetaminophen Allergy Unknown RASH Verified 03/23/24 14:39 duloxetine [From Cymbalta] Allergy Other Verified 03/23/24 14:39 oxycodone [From Percocet] Allergy Rash Verified 03/23/24 14:39 varenicline [From Chantix] Allergy Other Verified 03/23/24 14:39 fluticasone AdvReac Intermediate lumps on Verified 03/23/24 14:39 tongue tramadol AdvReac Intermediate itchy, Verified 03/23/24 14:39 dizzy MICONAZOLE NITRATE Allergy Unknown Hives Uncoded 11/28/23 16:57 MUSCLE RELAXER Allergy Unknown Unknown Uncoded 11/28/23 16:57 OXYCODONE HCL Allergy Unknown RASH Uncoded 11/28/23 16:57 Review of Systems Review of Systems: All systems reviewed & are unremarkable except as noted in HPI and below PMFSH Past Medical History Medical History Anxiety Asthma Body mass index (bmi) 38.0-38.9, adult (09/19/18) Chronic migraine Chronic pain syndrome COPD (chronic obstructive pulmonary disease) Fibromyalgia GERD (gastroesophageal reflux disease) History of cervical cancer HTN (hypertension) Impaired glucose tolerance Severe bipolar disorder Surgical History Surgical History History of appendectomy History of Family History Family History Father Family history of mental disorder Cerebrovascular accident Family history of Alzheimer's disease Family history of cardiovascular disease Heart disease Mother Hypertension Sibling Heart disease Narcolepsy Daughter Obesity Bipolar disorder Schizophrenia Other Asthma Depression Family history of alcoholism Family history of bipolar disorder Family history of lung disease Family history of malignant neoplasm of uterus Family history of migraine headaches Family history of obesity Family history of schizophrenia Family history of seizure disorder Social H
[2024-03-23 16:11] VITALS: BP 145/90; PULSE 100; RESP 20; TEMP 36.8; O2SAT 98
== END 2024-03-23 16:13 | disposition home or self-care (01) ==
LOC: ANHED 16:07
PROVIDERS: Emergency Provider Emergency Medicine; PCP Family Medicine
DX: J32.9 Chronic sinusitis, unspecified (principal); H92.03 Otalgia, bilateral; I10 Essential (primary) hypertension; J44.9 Chronic obstructive pulmonary disease, unspecified; M79.7 Fibromyalgia; G89.4 Chronic pain syndrome; K21.9 Gastro-esophageal reflux disease without esophagitis; F31.9 Bipolar disorder, unspecified; F41.9 Anxiety disorder, unspecified; F17.210 Nicotine dependence, cigarettes, uncomplicated; Z85.41 Personal history of malignant neoplasm of cervix uteri
CPT/HCPCS: 99283

== ENCOUNTER 2024-05-22 15:35 | Emergency (ER) | payer MEDICARE, MEDICAID, SELFPAY ==
--- NOTE | 2024-05-22 15:51 | ED.LOWEXIN ---
HPI - Extremity Injury (Lower) General Chief Complaint: Extremity Injury, Lower Stated Complaint: LT Knee Pain Time Seen by Provider: 05/22/24 15:52 Source: patient, RN notes reviewed and old records reviewed Mode of arrival: ambulatory Limitations: no limitations History of Present Illness HPI Narrative: Patient presents with complaints of left knee pain. She reports that she had a bug bite to the affected area, scratched it until it bled. She then developed a scab, now has purulent drainage from the site. She denies any fever, chills, sweats. She denies all other injury and trauma. She voices no other concerns or complaints at this time. She has been washing the site with peroxide for the past week, symptoms have worsened Related Data Home Medications Medication Instructions Recorded Confirmed atorvastatin 80 mg tablet 80 mg PO DAILY 07/14/19 05/22/24 omeprazole 20 mg capsule,delayed 40 mg PO DAILY 07/14/19 05/22/24 release venlafaxine 100 mg tablet 100 mg PO TID 07/14/19 05/22/24 aripiprazole 5 mg tablet (Abilify) 5 mg PO DAILY 03/21/22 05/22/24 baclofen 10 mg tablet 10 mg TID 03/21/22 05/22/24 ferrous sulfate 325 mg (65 mg 325 mg DAILY 03/21/22 05/22/24 iron) tablet (FeroSul) lamotrigine 200 mg tablet 200 mg BID 03/21/22 05/22/24 lisinopril 40 mg tablet 40 mg DAILY 03/21/22 05/22/24 meloxicam 15 mg tablet 15 mg DAILY 03/21/22 05/22/24 norethindrone acetate 5 mg tablet 5 mg DAILY 03/21/22 05/22/24 triamcinolone acetonide 0.1 % 1 applic topical DIRECTED 03/21/22 05/22/24 topical cream acetaminophen 325 mg tablet 4,000 mg PO Q6H PRN Pain 04/05/22 05/22/24 (Tylenol) gabapentin 300 mg capsule 1,100 mg PO DAILY 04/05/22 05/22/24 mirtazapine 15 mg tablet 15 mg DAILY 08/09/22 05/22/24 dexmethylphenidate 20 mg 20 mg PO DAILY 09/26/23 05/22/24 capsule,extended release [id number] Allergies Allergy/AdvReac Type Severity Reaction Status Date / Time codeine Allergy Mild HIVES,SYNCO Verified 05/22/24 15:39 PE acetaminophen Allergy Unknown RASH Verified 05/22/24 15:39 duloxetine [From Cymbalta] Allergy Other Verified 05/22/24 15:39 oxycodone [From Percocet] Allergy Rash Verified 05/22/24 15:39 varenicline [From Chantix] Allergy Other Verified 05/22/24 15:39 fluticasone AdvReac Intermediate lumps on Verified 05/22/24 15:39 tongue tramadol AdvReac Intermediate itchy, Verified 05/22/24 15:39 dizzy MICONAZOLE NITRATE Allergy Unknown Hives Uncoded 05/22/24 15:39 MUSCLE RELAXER Allergy Unknown Unknown Uncoded 05/22/24 15:39 OXYCODONE HCL Allergy Unknown RASH Uncoded 05/22/24 15:39 Review of Systems Review of Systems: All systems reviewed & are unremarkable except as noted in HPI and below Constitutional: Constitutional: Reports no additional constitutional complaints ENT: Reports system reviewed and no additional complaints, except as documented Cardiovascular: Cardiovascular: Reports no additional cardiovascular complaints Respiratory: Respiratory: Reports no additional respiratory complaints Gastrointestinal: Gastrointestinal: Reports no additional gastrointestinal complaints Integumentary/Breasts: Skin/Breast: Reports as per HPI and Reports lesions [facility] Past Medical History Medical History Anxiety Asthma Body mass index (bmi) 38.0-38.9, adult (09/19/18) Chronic migraine Chronic pain syndrome COPD (chronic obstructive pulmonary disease) Fibromyalgia GERD (gastroesophageal reflux disease) History of cervical cancer HTN (hypertension) Impaired glucose tolerance Severe bipolar disorder Surgical History Surgical History History of appendectomy History of Family History Family History Father Family history of mental disorder Cerebrovascular accident Family history of Alzheimer's disease Fami
[2024-05-22 15:53] VITALS: BP 136/76; PULSE 94; RESP 20; TEMP 36.4; O2SAT 99
== END 2024-05-22 16:55 | disposition home or self-care (01) ==
PROVIDERS: Emergency Provider Nurse Practitioner Family; PCP Family Medicine
DX: S81.002A Unspecified open wound, left knee, initial encounter (principal); L08.9 Local infection of the skin and subcutaneous tissue, unspecified; X58.XXXA Exposure to other specified factors, initial encounter; J44.9 Chronic obstructive pulmonary disease, unspecified; M79.7 Fibromyalgia; K21.9 Gastro-esophageal reflux disease without esophagitis; I10 Essential (primary) hypertension; F31.9 Bipolar disorder, unspecified; D41.9 Neoplasm of uncertain behavior of unspecified urinary organ; Z85.41 Personal history of malignant neoplasm of cervix uteri; F17.210 Nicotine dependence, cigarettes, uncomplicated
CPT/HCPCS: 99213; G0463

== ENCOUNTER 2024-06-10 14:09 | Emergency (ER) | payer MEDICARE, MEDICAID, SELFPAY ==
--- NOTE | ~2024-06-10 | XR_ITS ---
EXAMINATION: XR chest 2V DATE: 06/10/2024 15:21 INDICATION: Cough. TECHNIQUE: PA and lateral views of the chest were obtained. COMPARISON: Chest radiograph dated 11/28/2023 FINDINGS: The lungs remain clear with no focal airspace opacities, pulmonary edema, pleural effusion or pneumot horax. Heart size is normal. A couple old healed fractures of the lateral right eighth and ninth ribs . IMPRESSION: 1. No acute cardiopulmonary disease. Reviewed, dictated and finalized at location A.
[2024-06-10] MEDS: IPRATROPIUM 0.5 MG/ALBUTEROL SULFATE 2.5 MG AMPUL.NEB 3 ML INHALATION (14:49)
[2024-06-10 14:50] VITALS: PULSE 96; RESP 20
[2024-06-10 14:56] VITALS: PULSE 90; RESP 20
[2024-06-10 14:58] VITALS: BP 144/80; PULSE 96; RESP 14; TEMP 36.7; O2SAT 95; O2SAT 97
--- NOTE | 2024-06-10 15:05 | ED.GENADULT ---
HPI - General Adult General Chief complaint: Upper Respiratory Infection Stated complaint: URI sx Time Seen by Provider: 06/10/24 14:26 History of Present Illness HPI narrative: Patient is a 43-year-old female who presents ER with cough. Ongoing for 6 days. Associated with sinus congestion. Productive of yellow sputum. Has had 3 loose stools daily over the last couple of days. No fevers or chills or sweats. No chest pain chest pressure. She has run out of nebulizer solution at home. Referred here by her PCP for further evaluation. Related Data Home Medications Medication Instructions Recorded Confirmed atorvastatin 80 mg tablet 80 mg PO DAILY 07/14/19 05/22/24 omeprazole 20 mg capsule,delayed 40 mg PO DAILY 07/14/19 05/22/24 release venlafaxine 100 mg tablet 100 mg PO TID 07/14/19 05/22/24 aripiprazole 5 mg tablet (Abilify) 5 mg PO DAILY 03/21/22 05/22/24 baclofen 10 mg tablet 10 mg TID 03/21/22 05/22/24 ferrous sulfate 325 mg (65 mg 325 mg DAILY 03/21/22 05/22/24 iron) tablet (FeroSul) lamotrigine 200 mg tablet 200 mg BID 03/21/22 05/22/24 lisinopril 40 mg tablet 40 mg DAILY 03/21/22 05/22/24 meloxicam 15 mg tablet 15 mg DAILY 03/21/22 05/22/24 norethindrone acetate 5 mg tablet 5 mg DAILY 03/21/22 05/22/24 triamcinolone acetonide 0.1 % 1 applic topical DIRECTED 03/21/22 05/22/24 topical cream acetaminophen 325 mg tablet 4,000 mg PO Q6H PRN Pain 04/05/22 05/22/24 (Tylenol) gabapentin 300 mg capsule 1,100 mg PO DAILY 04/05/22 05/22/24 mirtazapine 15 mg tablet 15 mg DAILY 08/09/22 05/22/24 dexmethylphenidate 20 mg 20 mg PO DAILY 09/26/23 05/22/24 capsule,extended release [id number] Allergies Allergy/AdvReac Type Severity Reaction Status Date / Time codeine Allergy Mild HIVES,SYNCO Verified 06/10/24 14:35 PE acetaminophen Allergy Unknown RASH Verified 06/10/24 14:35 duloxetine [From Cymbalta] Allergy Other Verified 06/10/24 14:35 oxycodone [From Percocet] Allergy Rash Verified 06/10/24 14:35 varenicline [From Chantix] Allergy Other Verified 06/10/24 14:35 fluticasone AdvReac Intermediate lumps on Verified 06/10/24 14:35 tongue tramadol AdvReac Intermediate itchy, Verified 06/10/24 14:35 dizzy methocarbamol [From Robaxin] AdvReac Unknown Other Verified 06/10/24 14:36 MICONAZOLE NITRATE Allergy Unknown Hives Uncoded 06/10/24 14:35 OXYCODONE HCL Allergy Unknown RASH Uncoded 06/10/24 14:35 Review of Systems Constitutional: Constitutional: Reports no additional constitutional complaints ENT: Reports nasal congestion and Reports sore throat Cardiovascular: Cardiovascular: Reports no additional cardiovascular complaints Respiratory: Respiratory: Reports cough, Denies dyspnea and Reports wheezing Gastrointestinal: Gastrointestinal: Reports no additional gastrointestinal complaints PMFSH Past Medical History Medical History Anxiety Asthma Body mass index (bmi) 38.0-38.9, adult (09/19/18) Chronic migraine Chronic pain syndrome COPD (chronic obstructive pulmonary disease) Fibromyalgia GERD (gastroesophageal reflux disease) History of cervical cancer HTN (hypertension) Impaired glucose tolerance Severe bipolar disorder Surgical History Surgical History History of appendectomy History of Family History Family History Father Family history of mental disorder Cerebrovascular accident Family history of Alzheimer's disease Family history of cardiovascular disease Heart disease Mother Hypertension Sibling Heart disease Narcolepsy Daughter Obesity Bipolar disorder Schizophrenia Other Asthma Depression Family history of alcoholism Family history of bipolar disorder Family history of lung disease Family history of malignant neoplasm of uterus Family history of migrai
[2024-06-10 16:25] VITALS: BP 141/86; PULSE 88; RESP 18; TEMP 36.7; O2SAT 97
== END 2024-06-10 16:25 | disposition home or self-care (01) ==
PROVIDERS: Emergency Provider Emergency Medicine; PCP Family Medicine
DX: J40 Bronchitis, not specified as acute or chronic (principal); J44.9 Chronic obstructive pulmonary disease, unspecified; I10 Essential (primary) hypertension; G89.4 Chronic pain syndrome; M79.7 Fibromyalgia; F31.9 Bipolar disorder, unspecified; F17.210 Nicotine dependence, cigarettes, uncomplicated; Z85.41 Personal history of malignant neoplasm of cervix uteri
CPT/HCPCS: 71046; 94640; 99283

== ENCOUNTER 2025-01-01 17:58 | Emergency (ER) | payer MEDICARE, MEDICAID, SELFPAY ==
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
--- OUTSIDE RECORDS SUMMARY | 2025-01-01 18:00 | XMS_ITS | Encounter Summary ---
Author Organization [facility] Address [facility] [place] [address] Care Team Providers Care Vault Maker Name Role Phone Melanie Hernandez MD Primary Care Provider [phone] Contreras Ramesh MD Unavailable [phone] Gaby Calix MD Primary Care Provider [phone] Encounter Details Date Type Department Care Team (Late st Contact Info) Description 01/10/2017 Abstract 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 Gender Identity Not on file Sexual Orientation Not on file documented as of this encounter Plan of Treatment Not on file documented as of this encounter Visit Diagnoses Not on filedocumented in this encounter Additional Health Concerns Infection Onset Date Last Indicated Resolved Time MRSA 04/05/2017 04/05/2017 COVID-19 Rule Out 11/15/2023 11/15/2023 11/15/2023 4:59 PM CDT documented as of this encounter Care Teams Vault Maker Relationship Specialty Start Date End Date Melanie Hernandez MD 3 [facility] [address] [place] [address] PCP - General 07/19/16 11/02/21 Gaby Calix MD [address] [facility] [address] [place], [place] [address] PCP - General FAMILY PRACTICE 11/03/21 Contreras Ramesh MD Three [facility]. [address] [place], [place] [id number] [place] [employer] Development Engineer CARDIOVASCULAR DISEASE 05/17/17 documented as of this encounter
--- OUTSIDE RECORDS SUMMARY | 2025-01-01 18:00 | XMS_ITS | Encounter Summary ---
Author Organization [facility] Address [facility] [place] [address] Care Team Providers Care Block Splitter Operator Name Role Phone Melanie Hernandez MD Primary Care Provider [phone] Contreras Ramesh MD Unavailable [phone] Gaby Claix MD Primary Care Provider [phone] Encounter Details Date Type Department Care Team (Late st Contact Info) Description 05/21/2017 Abstract [facility] [place] [address] [place] [address] Yumiko Montelongo, [facility] Social History Tobacco Use Types Packs/Day Years Used Date Smoking Tobacco: Every Day Cigarettes Smokeless Tobacco: Never Alcohol Use Standard Drinks/Week Comments No 0 (1 standard drink = 0.6 oz pur e alcohol) Comments Unknown Sex and Gender Information Value Date Recorded Sex Assigned at Not on file 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 Gender Identity Not on file Sexual Orientation Not on file documented as of this encounter Plan of Treatment Not on file documented as of this encounter Procedures Procedure Name Priority Date/Time Associated Diagnosis Comments CBC (OUTSIDE LAB) Routine 04/22/2017 CBC (OUTSIDE LAB) Routine 11/02/2016 BASIC METABOLIC PANEL Routine 11/02/2016 documented in this encounter Results * CBC (OUTSIDE LAB) (04/22/2017) WBC 9.5 HGB 11.4 HCT 34.7 PLT 378 RBC 3.77 04/22/2017 [facility] Abstract LAB-OUTSIDE/ABSTRACTED Final Result * BASIC METABOLIC PANEL (11/02/2016) SODIUM S/P/B 140 POTASSIUM S/P/B 4.1 CO2 20.0 CHLORIDE S/P/B 109 GLUCOSE 91 mg/dL CALCIUM S/P/B 9.5 BUN 11 CREATININE S/P/B 0.76 0.5 - 1.0 EGFR NON-AFR. AMER. >60 <=90 11/02/2016 us Doc [facility] Abstract LABORATORY Final Result * CBC (OUTSIDE LAB) (11/02/2016) WBC 10.1 HGB 12.2 HCT 36.4 PLT 336 RBC 3.96 11/02/2016 us Doc [facility] Abstract LAB-OUTSIDE/ABSTRACTED Final Result documented in this encounter Visit Diagnoses Not on filedocumented in this encounter Additional Health Concerns Infection Onset Date Last Indicated Resolved Time MRSA 04/05/2017 04/05/2017 COVID-19 Rule Out 11/15/2023 11/15/2023 11/15/2023 4:59 PM CDT documented as of this encounter Care Teams Block Splitter Operator Relationship Specialty Start Date End Date Melanie Hernandez MD 3 [facility] [address] [place] [address] PCP - General 07/19/16 11/02/21 Gaby Calix MD 3 [facility] [address] [place] [address] PCP - General FAMILY PRACTICE 11/03/21 Contreras Ramesh MD Three [facility]. [facility] [address] [place] [address] [employer] Surety Bond Agent CARDIOVASCULAR DISEASE 05/17/17 documented as of this encounter
--- OUTSIDE RECORDS SUMMARY | 2025-01-01 18:00 | XMS_ITS | Encounter Summary ---
Author Organization [facility] Address [facility] [place] [address] Care Team Providers Care Health Services Administrator Name Role Phone Melanie Hernandez MD Primary Care Provider [phone] Contreras Ramesh MD Unavailable [phone] Gaby Calix MD Primary Care Provider [phone] Encounter Details Date Type Department Care Team (Late st Contact Info) Description 04/11/2016 Abstract [facility] CONVERSION [address] [place] [address] , Generic Conversion, Social History Tobacco Use Types Packs/Day Years Used Date Smoking Tobacco: Never Assessed Comments Unknown Sex and Gender Information Value Date Recorded Sex Assigned at Not on file 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 Gender Identity Not on file Sexual Orientation Not on file documented as of this encounter Plan of Treatment Not on file documented as of this encounter Visit Diagnoses Not on filedocumented in this encounter Additional Health Concerns Infection Onset Date Last Indicated Resolved Time MRSA 04/05/2017 04/05/2017 COVID-19 Rule Out 11/15/2023 11/15/2023 11/15/2023 4:59 PM CDT documented as of this encounter Care Teams Health Services Administrator Relationship Specialty Start Date End Date Melanie Hernandez MD 3 [facility] [address] [place] [address] PCP - General 07/19/16 11/02/21 Gaby Calix MD [address] [facility] [address] [place], [place] [address] PCP - General FAMILY PRACTICE 11/03/21 Contreras Ramesh MD Three [facility]. [address] [place], [place] [id number] [place] Surveying Party Chief CARDIOVASCULAR DISEASE 05/17/17 documented as of this encounter
--- OUTSIDE RECORDS SUMMARY | 2025-01-01 18:00 | XMS_ITS | Clinical Summary ---
Author Organization [facility] Address [facility] [place] [address] Care Team Providers Care Blood Splatter Analyst Name Role Phone Contreras Ramesh MD Unavailable Gaby Calix MD Primary Care Provider [phone] Allergies Active Allergy Reactions Criticality Noted Date Comments Amoxicillin-Pot Clavulanate Nausea and Vomiting Medium 03/23/2024 Varenicline Other (see comment) 11/29/2017 suicidal Codeine Hives 05/21/2017 Duloxetine Hcl Unknown 05/21/2017 Miconazole Unknown 05/21/2017 Oxycodone-Acetaminophen Unknown 05/21/2017 Tramadol Unknown 05/21/2017 Medications gabapentin 300 MG capsule Take 2 capsules by mouth 3 (three) times daily. 3 8 Active atorvastatin 80 MG tablet Take 1 tablet by mouth daily. 3 8 Active lisinopril 40 MG tablet Take 1 tablet by mouth daily. 3 8 Active PROAIR HFA 108 (90 BASE) MCG/ACT inhaler Inhale 2 puffs into the lungs every 6 (six) hours as needed. 3 8 Active methocarbamol 750 MG Tab Take 1 tablet by mouth 3 (three) times daily. 2 8 Active hyoscyamine CR 0.375 MG 12 hr tablet Take 1 tablet by mouth 2 (two) times daily. 2 8 Active venlafaxine 100 MG tablet Take 1 tablet by mouth 3 (three) times daily. 1 8 Active lamoTRIgine 200 MG tablet Take 1 tablet by mouth daily. 1 8 Active ranitidine 300 MG tablet Take 1 tablet by mouth daily. 3 8 Active zolpidem 5 MG tablet Take 1 tablet by mouth nightly at bedtime. 0 8 Active mirtazapine 30 MG tablet Take 1 tablet by mouth daily. 3 8 Active ipratropium-alb uterol 0.5-2.5 (3) MG/3ML Solution Take 3 mLs by nebulization daily. 0 8 Active omeprazole 40 MG capsule Take 1 capsule (40 mg total) by mouth daily. 8 Active ferrous sulfate EC 324 (65 Fe) MG tablet Take 1 tablet (324 mg total) by mouth 2 (two) times daily with meals. 30 tablet 0 Active Active Problems Problem Noted Date Diagnosed Date Tobacco abuse 01/24/2018 History of DVT of lower extremity 01/24/2018 Obesity Hypertension, essential Dyslipidemia Family History Medical History Relation Comments Stent Cardiac Brother 1 COPD Father Heart Attack Father Heart Disease Father Hypertension Father Stroke Father Hypertension Mother Relation Status Comments Brother 1 (Age 39) Brother 2 (Age 44) Father (Age 84) Mother (Age 73) Sister 1 Alive Sister 2 Alive Social History Tobacco Use Types Packs/Day Years Used Date Smoking Tobacco: Every Day Cigarettes 0.5 27 Smokeless Tobacco: Never Alcohol Use Standard Drinks/Week Comments No 0 (1 standard drink = 0.6 oz pur e alcohol) Comments No Sex and Gender Information Value Date Recorded Sex Assigned at Not on file Legal Sex 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 Gender Identity Not on file Sexual Orientation Not on file Occupation Industry Job Start Date Job End Date Not on file Not on file Not on file Not on file Last Filed Vital Signs Vital Sign Reading Time Taken Comments Blood Pressure 121/99 07/03/2024 12:13 PM COMMUNITY CASE MANAGER Pulse 97 07/03/2024 12:13 PM COMMUNITY CASE MANAGER Temperature 36.6 C (97.8 F) 07/03/2024 12:13 PM COMMUNITY CASE MANAGER Respiratory Rate 19 07/03/2024 12:13 PM COMMUNITY CASE MANAGER Oxygen Saturation 97% 07/03/2024 12:13 PM COMMUNITY CASE MANAGER Inhaled Oxygen Concentration - - Weight 99.8 kg (220 lb) 07/03/2024 12:13 PM COMMUNITY CASE MANAGER Height 170.2 cm (5' 7 ) 07/03/2024 12:13 PM COMMUNITY CASE MANAGER Body Mass Index 34.46 07/03/2024 12:13 PM COMMUNITY CASE MANAGER Plan of Treatment Health Maintenance Due Date Last Done Comments Cervical Cancer Screening Pa p Smear (Age 30 to 64) Every 3 Years 1978 Colorectal Cancer Screening Colonoscopy (10 Years) 1978 Annual Physical 1981 Hepatitis C 1996 Hepatitis B Vaccines (1 of 3 - 19+ 3-dose series) 1997 Cervical Cancer Screening Pa p with HPV Testing (Age 30 to 64) Every 5 Years 2008 Cervical Cancer Screening with HPV 2008 Pneumococcal Vaccine: Pediat rics (0 to 5 Years) and At-Risk Patients (6 to 49 Years) (2 of 2 - PCV) 05/09/2018 05/09/2017 Mammogram Screening 2018 COVID-19 Vaccine (2023-2 5 season) 2024 PHQ-2 (Physician Resighini) 08/26/2024 DTaP, Tdap and Td Vaccines ( 2 - Td or Tdap) 08/14/2027 08/14/2017 Meningococcal B Vaccine Aged Out No l onger eligible based on patient's age to complete this topic Meningococcal Vaccine Aged Out No ezequiel mary eligible based on patient's age to complete this topic RSV Immunizations Under 20 Months Aged Out No longer eligible based on patient's age to complete this topic Additional Health Concerns Infection Onset Date Last Indicated MRSA 04/05/2017 04/05/[address] [place] [address] [place]ICA[place] [id number] [employer] Care Teams Blood Splatter Analyst Relationship Specialty Start Date End Date Gaby Calix MD 3 [facility] [address] [place] [address] PCP - General FAMILY PRACTICE 11/03/21 Contreras Ramesh MD Three [facility]. [address] [place] [address] [place] Software Quality Engineer CARDIOVASCULAR DISEASE 05/17/17
--- OUTSIDE RECORDS SUMMARY | 2025-01-01 18:00 | XMS_ITS | Clinical Summary ---
Author Organization [facility] Address [address], [facility] [address] [place] [address] Phone Care Team Providers Care Control Operator Name Role Phone Melanie Hernandez MD Primary Care Provider [phone] Khurram Carrero MD Unavailable [phone] Allergies Active Allergy Reactions Criticality Noted Date Comments Aspirin Shortness of Breath 10/13/2020 Bupropion Other (see Comments) Low 10/11/2017 restless restless Cat Dander Other (see Comments) 02/09/2021 Congestion, watery eyes Codeine Hives,Rash Medium 05/21/2017 Duloxetine Other (see Comments),Unknown Low 05/21/2017 suicidal suicidal Hydrocortisone Rash Medium 10/11/2017 Latex Rash 10/13/2020 And burning Miconazole Unknown 05/21/2017 Oxycodone-Acetaminophen Unknown 05/21/2017 Tramadol Rash,Unknown Medium 05/21/2017 Varenicline Other (see Comments),Unknown Low 10/11/2017 suicidal suicidal suicidal suicidal Medications albuterol (ProAir HFA) 108 (90 Base) MCG/ACT Aerosol Solution 8 Active atorvastatin (LIPITOR) 80 MG Tablet 8 Active baclofen (LIORESAL) 10 MG Tablet 1 Active ARIPiprazole (ABILIFY) 5 MG Tablet 1 Active FeroSul 325 (65 Fe) MG Tablet TAKE 1 TABLET BY MOUTH EVERY OTHER DAY 1 Active fluPHENAZine (PROLIXIN) 2.5 MG Tablet 8 Active fluticasone (FLONASE) 50 MCG/ACT Suspension SHAKE LIQUID AND USE 1 SPRAY IN EACH NOSTRIL TWICE DAILY NEEDED FOR NASAL CONGESTION 1 Active gabapentin (NEURONTIN) 300 MG Capsule 8 Active ipratropium-alb uterol (DUO-NEB) 0.5-2.5 (3) MG/3ML Solution 8 Active lamoTRIgine (LaMICtal) 200 MG Tablet 8 Active lisinopril (PRINIVIL, ZESTRIL) 40 MG Tablet 8 Active meloxicam (MOBIC) 15 MG Tablet 1 Active omeprazole (PriLOSEC) 40 MG CAPSULE DELAYED RELEASE TK 1 C PO QD 8 Active traZODone (DESYREL) 100 MG Tablet 1 Active triamcinolone (KENALOG) 0.1 % Cream 7 Active venlafaxine (EFFEXOR) 100 MG Tablet 8 Active Anoro Ellipta 62.5-25 MCG/INH AEROSOL POWDER, BREATH ACTIVATED INHALE 1 PUFF BY MOUTH EVERY 24 HOURS 1 Active Norethindrone Acetate 5 MG Tablet 1 Active acetaminophen (Tylenol) 325 MG Tablet Take 325 mg by mouth every 4 hours as needed. Active ibuprofen (MOTRIN) 200 MG Tablet Take 200 mg by mouth every 8 hours as needed. Active Multiple Vitamins-Minera ls (CENTRUM PO) Take by mouth. Active Trelegy Ellipta 100-62.5-25 MCG/INH AEROSOL POWDER, BREATH ACTIVATED INHALE 1 PUFF BY MOUTH EVERY 24 HOURS. RINSE AND SPIT AFTER EACH USE 1 Active mirtazapine (REMERON) 15 MG Tablet 1 Active Dexmethylphenid ate HCl 10 MG CAPSULE SR 24 HR 0 1 Active Erythromycin 2 % Gel APPLY TO AFFECTED AREAS ON THE BODY DAILY. 1 Active Immunizations Immunization Administration Dates Next Due Influenza Vaccine, Quadrivalent, PF 05/20/2020 Influenza, Injectable, Quadrivalent 09/30/2018,0 05/09/2017,09/23/2015 Influenza, Seasonal, Injectable, Undefined 05/26,07/07/2014 Pneumococcal Vaccine Adult - 23 Valent 7 TDAP Vaccine 08/14/2017 Family History Medical History Relation Name Comments Heart Disease Brother 1 Cancer Father Heart Attack Father Heart Disease Father Cancer Sister 1 Relation Name Status Comments Brother 1 Brother 2 'killed' Father Mother 'murdered' Sister 1 Alive Sister 2 Alive factor V leiden Social History Tobacco Use Types Packs/Day Years Used Date Smoking Tobacco: Every Day Cigarettes 0.5 34.4 Started: 1990 Smokeless Tobacco: Never Tobacco Cessation:Ready to Q uit: No; Counseling Given: Yes Alcohol Use Standard Drinks/Week Comments Not Currently 0 (1 standard drink = 0.6 oz pur e alcohol) PHQ-2 Answer Date Recorded Total Score - Questions 1-9 1 04/2021 Education Answer Date Recorded What is the highest level of school you have completed or the highest degree you have received? 12th grade 10/13/2020 Sexually Active Control Partners Comments Yes Comments No Sex and Gender Information Value Date Recorded Sex Assigned at Not on file Legal Sex Female 9:19 AM BRUSH MAKER Gender Identity Not on file Sexual Orientation Not on file Last Filed Vital Signs Vital Sign Reading Time Taken Comments Blood Pressure 110/80 08/03/2021 11:33 AM BRUSH MAKER Pulse 92 08/03/2021 11:33 AM BRUSH MAKER Temperature 37 C (98.6 F) 08/03/2021 11:33 AM BRUSH MAKER Respiratory Rate 18 08/03/2021 11:3 3 AM BRUSH MAKER Oxygen Saturation 95% 08/03/2021 11: 33 AM BRUSH MAKER Inhaled Oxygen Concentration - - Weight 114.9 kg (253 lb 3.2 oz) 021 11:33 AM BRUSH MAKER Height 170.2 cm (5' 7 ) 08/03/2021 11:3 3 AM BRUSH MAKER Body Mass Index 39.66 08/03/2021 11:33 AM BRUSH MAKER Plan of Treatment Health Maintenance Due Date Last Done Comments Hepatitis C Virus (HCV) Screening 1978 Hepatitis B Immunization (1 of 3 - 19+ 3-dose series) 1997 Colonoscopy 2023 Colorectal Cancer Screening 2023 Influenza Immunization (#1) 04/26/202404/27, 09/30/2018, 05/26/2017, Additional history exists SARS-COV-2 Immunization (2023- season) 2024 Respiratory Syncytial Virus (RSV) Immunization (Adult) (1 - 1-dose 75+ series) 2053 Pneumococcal Immunization Combined Aged Out 05/09/2017 No longer eligible based on patient's age to complete this topic DTaP/Tdap/Td Immunization Discontinued 08/14/2017 Meningococcal Immunization (ACWY) Aged Out No longer eligible based on patient's age to complete this topic Rotavirus Immunization Aged Out No lo nger eligible based on patient's age to complete this topic Insurance MEDICARE [place]ICAID [place] Care Teams Control Operator Relationship Specialty Start Date End Date Melanie Hernandez MD 3 [facility] [address] [place] [address] PCP - General Family Medicine 10/03/20 Khurram Carrero MD [address] [place] [address] [phone] Consulting Physician Oncology 10/03/20
--- OUTSIDE RECORDS SUMMARY | 2025-01-01 18:00 | XMS_ITS | Encounter Summary ---
Author Organization [facility] Address [facility] [place] [address] Care Team Providers Care Security Agent Name Role Phone Melanie Hernandez MD Primary Care Provider [phone] Contreras Ramesh MD Unavailable [phone] Gaby Calix MD Primary Care Provider [phone] Encounter Details Date Type Department Care Team (Late st Contact Info) Description 01/30/2016 Abstract [facility] CONVERSION [address] [place] [address] , Generic Conversion, Social History Tobacco Use Types Packs/Day Years Used Date Smoking Tobacco: Never Assessed Comments Unknown Sex and Gender Information Value Date Recorded Sex Assigned at Not on file Legal Sex Female 8:10 AM RESTAURANT HOURLY MANAGER Gender Identity Not on file Sexual [...] documented as of this encounter Care Teams Security Agent Relationship Specialty Start Date End Date Melanie Hernandez MD 3 [facility] [address] [place] [address] PCP - General 07/19/16 11/02/21 Gaby Calix MD [address] [facility] [address] [place], [place] [address] PCP - General FAMILY PRACTICE 11/03/21 Contreras Ramesh MD Three [facility]. [address] [place], [place] [id number] Cache Supervisor Paint CARDIOVASCULAR DISEASE 05/17/17 documented as of this encounter
--- OUTSIDE RECORDS SUMMARY | 2025-01-01 18:00 | XMS_ITS | Encounter Summary ---
Author Organization [facility] Address [facility] [place] [address] Care Team Providers Care Wood Tank Erector Name Role Phone Contreras Ramesh MD Unavailable [phone] Gaby Calix MD Primary Care Provider [phone] Encounter Details Date Type Department Care Team (Late st Contact Info) Description 03/24/2024 Tapatap Message Enc [facility] THREE [facility] [address] [place], [place] [id number] Contreras Ramesh MD Three [facility]. [address] [place], [place] [id number] Mone Contreras Social History Tobacco Use Types Packs/Day Years Used Date Smoking Tobacco: Every Day Cigarettes 0.5 27 Smokeless Tobacco: Never Alcohol Use Standard Drinks/Week Comments No 0 (1 standard drink = 0.6 oz pur e alcohol) Comments No Sex and Gender Information Value Date Recorded Sex Assigned at Not on file Legal Sex Female 8:10 AM MEDIA DIRECTOR Gender Identity Not on file Sexual Orientation Not on file Occupation Industry Job Start Date Job End Date Not on file Not on file Not on file Not on file documented as of this encounter Plan of Treatment Not on file documented as of this encounter Visit Diagnoses Not on filedocumented in this encounter Additional Health Concerns Infection Onset Date Last Indicated Resolved Time MRSA 04/05/2017 04/05/2017 documented as of this encounter Care Teams Wood Tank Erector Relationship Specialty Start Date End Date Gaby Calix MD 3 [facility] [address] [place] [address] PCP - General FAMILY PRACTICE 11/03/21 Contreras Ramesh MD Three [facility]. [address] [place] [address] Gate Dry Cleaning Supervisor CARDIOVASCULAR DISEASE 05/17/17 documented as of this encounter
--- OUTSIDE RECORDS SUMMARY | 2025-01-01 18:00 | XMS_ITS | Encounter Summary ---
Author Organization [facility] Address [facility] [place] [address] Care Team Providers Care Spectrographic Analyst Name Role Phone Melanie Hernandez MD Primary Care Provider [phone] Contreras Ramesh MD Unavailable [phone] Gaby Calix MD Primary Care Provider [phone] Encounter Details Date Type Department Care Team (Late st Contact Info) Description 05/16/2016 Abstract [facility] CONVERSION [address] [place] [address] , Generic Conversion, Social History Tobacco Use Types Packs/Day Years Used Date Smoking Tobacco: Never Assessed Comments Unknown Sex and Gender Information Value Date Recorded Sex Assigned at Not on file Legal Sex Female 8:10 AM HELPDESK SPECIALIST Gender Identity Not on file Sexual Orientation Not on file documented as of this encounter Plan of Treatment Not on file documented as of this encounter Visit Diagnoses Not on filedocumented in this encounter Additional Health Concerns Infection Onset Date Last Indicated Resolved Time MRSA 04/05/2017 04/05/2017 COVID-19 Rule Out 11/15/2023 11/15/2023 11/15/2023 4:59 PM CDT documented as of this encounter Care Teams Spectrographic Analyst Relationship Specialty Start Date End Date Melanie Hernandez MD [address] [facility] [address] [place] [address] PCP - General 07/19/16 11/02/21 Gaby Calix MD [address] [facility] [address] [place], [place] [address] PCP - General FAMILY PRACTICE 11/03/21 Contreras Ramesh MD Three [facility]. [address] [place], [place] [id number] [place] [facility] Coordinator CARDIOVASCULAR DISEASE 05/17/17 documented as of this encounter
--- OUTSIDE RECORDS SUMMARY | 2025-01-01 18:00 | XMS_ITS | Encounter Summary ---
Author Organization [facility] Address [facility] [place] [address] Care Team Providers Care Governor Assembler Hydraulic Name Role Phone Melanie Hernandez MD Primary Care Provider [phone] Contreras Ramesh MD Unavailable [phone] Gaby Calix MD Primary Care Provider [phone] Encounter Details Date Type Department Care Team (Late st Contact Info) Description 01/24/2017 Abstract [facility] CONVERSION [address] [place] [address] , Generic Conversion, Social History Tobacco Use Types Packs/Day Years Used Date Smoking Tobacco: Never Assessed Comments Unknown Sex and Gender Information Value Date Recorded Sex Assigned at Not on file Legal Sex Female 8:10 AM GLASS SCULLION Gender Identity Not on file Sexual Orientation Not on file documented as of this encounter Plan of Treatment Not on file documented as of this encounter Visit Diagnoses Not on filedocumented in this encounter Additional Health Concerns Infection Onset Date Last Indicated Resolved Time MRSA 04/05/2017 04/05/2017 COVID-19 Rule Out 11/15/2023 11/15/2023 11/15/2023 4:59 PM CDT documented as of this encounter Care Teams Governor Assembler Hydraulic Relationship Specialty Start Date End Date Melanie Hernandez MD 3 [facility] [address] [place] [address] PCP - General 07/19/16 11/02/21 Gaby Calix MD [address] [facility] [address] [place], [place] [address] PCP - General FAMILY PRACTICE 11/03/21 Contreras Ramesh MD Three [facility]. [address] [place], [place] [id number] [address] Grader Operator CARDIOVASCULAR DISEASE 05/17/17 documented as of this encounter
--- OUTSIDE RECORDS SUMMARY | 2025-01-01 18:00 | XMS_ITS | Encounter Summary ---
Author Organization [facility] Address [facility] [place] [address] Care Team Providers Care Resident Care Manager Name Role Phone Melanie Hernandez MD Primary Care Provider [phone] Contreras Ramesh MD Unavailable [phone] Gaby Calix MD Primary Care Provider [phone] Encounter Details Date Type Department Care Team (Late st Contact Info) Description 05/08/2016 Abstract [facility] CONVERSION [address] [place] [address] , Generic Conversion, Social History Tobacco Use Types Packs/Day Years Used Date Smoking Tobacco: Never Assessed Comments Unknown Sex and Gender Information Value Date Recorded Sex Assigned at Not on file Legal Sex Female 8:10 AM JUICE MIXER Gender Identity Not on file Sexual Orientation Not on file documented as of this encounter Plan of Treatment Not on file documented as of this encounter Visit Diagnoses Not on filedocumented in this encounter Additional Health Concerns Infection Onset Date Last Indicated Resolved Time MRSA 04/05/2017 04/05/2017 COVID-19 Rule Out 11/15/2023 11/15/2023 11/15/2023 4:59 PM CDT documented as of this encounter Care Teams Resident Care Manager Relationship Specialty Start Date End Date Melanie Hernandez MD [address] [facility] [address] [place] [address] PCP - General 07/19/16 11/02/21 Gaby Calix MD [address] [facility] [address] [place], [place] [address] PCP - General FAMILY PRACTICE 11/03/21 Contreras Ramesh MD Three [facility]. [address] [place], [place] [id number] [place]ahga Endbander CARDIOVASCULAR DISEASE 05/17/17 documented as of this encounter
--- OUTSIDE RECORDS SUMMARY | 2025-01-01 18:00 | XMS_ITS | Clinical Summary ---
Author Organization [facility] Address [address] [place] [address] Care Team Providers Care Resistor Coater Name Role Phone Tiana Meza DO Primary Care Provider Vignesh MEHTA MD, [facility] [phone] Allergies Active Allergy Reactions Criticality Noted Date Comments Bupropion Other (See comments) Low 10/11/2017 restless Codeine Hives,Rash Medium 05/21/2017 Duloxetine Unknown Low 05/21/2017 suicidal Fluticasone Swelling Medium 05/24/2024 Hydrocortisone Rash Medium 10/11/2017 Miconazole Unknown 05/21/2017 Oxycodone-Acetaminophen Unknown 05/21/2017 Tramadol Rash,Unknown Medium 05/21/2017 Varenicline Unknown,Other (See comments) Low 10/11/2017 suicidal suicidal Medications ARIPiprazole (ABILIFY) 5 mg tablet 0 Active atorvastatin (LIPITOR) 80 mg tablet TK 1 T PO QD 0 Active baclofen (LIORESAL) 10 mg tablet 0 Active ferrous sulfate 325 mg (65 mg of elemental iron) tablet Take 1 tablet by mouth every other day 0 Active fluPHENAZine (PROLIXIN) 2.5 mg tablet TK 1 T PO QD 0 Active gabapentin (NEURONTIN) 300 mg capsule Take 600 mg by mouth 3 (three) times a day 0 Active lisinopriL (PRINIVIL,ZESTR [place]) 40 mg tablet TK 1 T PO QD 0 Active omeprazole (PriLOSEC) 40 mg capsule TK 1 C PO QD 0 Active venlafaxine (EFFEXOR) 100 mg tablet 0 Active lamoTRIgine (LaMICtal) 200 mg tablet Take 200 mg by mouth 2 (two) times a day 0 Active ipratropium-alb uteroL (DUO-NEB) 0.5-2.5 mg/3 mL nebulizer solution 8 Active meloxicam (MOBIC) 15 mg tablet 0 Active traZODone (DESYREL) 100 mg tablet 0 Active triamcinolone (KENALOG) 0.1 % cream 7 Active albuterol 2.5 mg /3 mL (0.083 %) nebulizer solution USE 1 VIAL VIA NEBULIZER EVERY 6 HOURS NEEDED FOR SHORTNESS OF BREATH OR WHEEZING 0 Active albuterol HFA (PROVENTIL HFA,VENTOLIN HFA,PROAIR HFA) 90 mcg/actuation inhaler INHALE 1 PUFF BY MOUTH EVERY 4 TO 6 HOURS NEEDED FOR SHORTNESS OF BREATH OR WHEEZING 0 Active fluticasone propionate (FLONASE) 50 mcg/actuation nasal spray SHAKE LIQUID AND USE 1 SPRAY IN EACH NOSTRIL TWICE DAILY NEEDED FOR NASAL CONGESTION 1 Active mirtazapine (REMERON) 15 mg tablet TAKE 1/2 TABLET BY MOUTH DAILY AT BEDTIME 1 Active norethindrone (AYGESTIN) 5 mg tablet 1 Active Anoro Ellipta 62.5-25 mcg/actuation blister with device 1 Active Active Problems Problem Noted Date Diagnosed Date Syncope and collapse 08/08/2020 Assessment & Plan (09/29/2020 2:50 PM RELAY MOTORMAN): Patient reports no additional syncopal episodes since last being seen. Over the interval she has undergone an MRI of the brain which is normal by reviewed report in addition to an EEG with hyperventilation and photic stimulation which is normal as well. Her neurological examination remains normal. Observation for the neurological standpoint at this time would be recommended. If she would have additional syncopal episodes, tertiary referral for consideration of video EEG monitoring could be considered. I will see her back in the office on an as-needed basis. Assessment & Plan (08/08/2020 3:41 PM RELAY MOTORMAN): Patient has several year history of frequently recurrent syncopal episodes. She states cardiac evaluation to date has been unrevealing. She was placed on Psychiatry medication with lamotrigine and gabapentin which she was told would also help seizures if the episodes were in fact seizures. Question has been raised as to whether these events are in fact genuine seizure. I will obtain an MRI brain with and without contrast to exclude structural aberration to account for potential seizure. I will also check a sleep-deprived EEG with hyperventilation and photic stimulation to screen for for any potential seizure predisposition. I will see her back thereafter. I have asked that she not drive until having completion of testing as she is she not be driving with recurrent syncope regardless. If the above-mentioned testing is unrevealing then she may benefit from tertiary referral for video EEG consideration as well. Surgical History Surgery Date Site/Laterality Comments SECTION APPENDECTOMY HAND SURGERY Medical History Medical History Date Comments Cancer (HCC) Stroke (HCC) Hypertension Depression High cholesterol Family History Medical History Relation Name Comments No Known Problems Brother 1 Heart disease Brother 2 No Known Problems Brother 3 Alzheimer's disease Father Cancer Father Heart attack Father Stroke Father No Known Problems Mother No Known Problems Sister 1 Brain cancer Sister 2 Relation Name Status Comments Brother 1 Alive Brother 2 Brother 3 Father Mother Sister 1 Alive Sister 2 Alive Social History Tobacco Use Types Packs/Day Years Used Date Smoking Tobacco: Every Day Smokeless Tobacco: Never Personal Safety Answer Date Recorded Getting School Help Needed Not on file 09/08 Comments Unknown Sex and Gender Information Value Date Recorded Sex Assigned at Not on file Legal Sex Female 8:09 AM CDT Gender Identity Not on file Sexual Orientation Not on file Obstetrics History Last Filed Vital Signs Vital Sign Reading Time Taken Comments Blood Pressure 127/81 05/24/2024 12:17 PM CDT Pulse 88 05/24/2024 12:17 PM CDT Temperature 36.8 C (98.2 F) 05/24/2024 12:17 PM CDT Respiratory Rate 16 05/24/2024 12:17 PM CDT Oxygen Saturation 95% 05/24/2024 12:17 PM CDT Inhaled Oxygen Concentration - - Weight 99.8 kg (220 lb) 05/24/2024 8:02 AM CDT Height 170.2 cm (5' 7 ) 05/24/2024 8:02 AM CDT Body Mass Index 34.46 05/24/2024 8:02 AM CDT Plan of Treatment Health Maintenance Due Date Last Done Comments Breast Cancer Screening-Mammogram 1978 Cervical Cancer Screening 1978 Colon Cancer Screening-Colonoscopy 1978 Depression Screening 1978 Hepatitis C Screening 1978 Hepatitis B Screening 1996 Regular Well Visit/Exam 18-64 1996 Pneumococcal vaccine <65 (2 of 2 - PCV) 05/09/2018 05/09/2017 Influenza Vaccine (Season Ended) 2025 05/20/2020, 09/30/2018, 05/26/2017, Additional history exists DTaP/Tdap/Td Vaccine (2 - Td or Tdap) 08/14/2027 08/14/2017 HPV Vaccines Aged Out No longer eligi ble based on patient's age to complete this topic Insurance MEDICARE [facility] Address: [address] [address] [place] [address] [place] MEDICARE AETNA [facility] MEDICARE [facility] Address: [address] [address] [place] [address] IDPA AETNA [facility] [employer] Care Teams Resistor Coater Relationship Specialty Start Date End Date Tiana Meza DO 3 [facility] [address] [place] [address] PCP - General Family Practice 06/21/20 Tan Medellin III, MD [address] [place] [address] Consulting Physician Rheumatology 05/18/21
--- OUTSIDE RECORDS SUMMARY | 2025-01-01 18:00 | XMS_ITS | Referral Summary ---
Author Organization [facility] Address [address] [place] [address] Care Team Providers Care Cleaner Window Name Role Phone Tiana Meza DO Primary Care Provider Vignesh MEHTA MD, Tan [facility] [phone] Allergies Active Allergy Reactions Criticality Noted Date [...] 08/08/2020 Assessment & Plan (09/29/2020 2:50 PM RURAL MAIL CARRIER): Patient reports no additional syncopal episodes since [...] basis. Assessment & Plan (08/08/2020 3:41 PM RURAL MAIL CARRIER): Patient has several year history of frequently [...] referral for video EEG consideration as well. Social History Tobacco Use Types Packs/Day Years [...] 05/24/2024 8:02 AM CDT Plan of Treatment Not on file Insurance MEDICARE [place] MEDICARE AETNA [facility] [employer]TRA MEDICARE [facility] AENA [facility] [employer] Care Teams Cleaner Window Relationship Specialty Start Date End Date Tiana Meza DO [address] [address] PCP - General Family Practice 06/21/20 Tan [place] III, MD [address] [place] [address] Consulting Physician Rheumatology 05/18/21
--- OUTSIDE RECORDS SUMMARY | 2025-01-01 18:00 | XMS_ITS | Clinical Summary ---
Author Organization [facility] [employer] Address [address] [place] [address] Care Team Providers Care Chief Operator Name Role Phone Shantell Garrett MD Primary Care Provider [phone] Source Comments [facility] [employer],non-owned Affiliates and Associated Physician Practices is amultiple site organization consisting of ambulatory clinics and hospital sitesin [place], [place], [place] and [place]. This disclosure is being madepursuant to the Care Everywhere program and may not contain all information available regarding this patient. Last updated 18.[facility] [employer] Allergies Active Allergy Reactions Criticality Noted Date Comments Bupropion Other Low 10/11/2017 restless Codeine Rash Medium 10/11/2017 Duloxetine Other Low 10/11/2017 suicidal Hydrocortisone Rash Medium 10/11/2017 Kdc:Acetaminophen+Oxycodone+Tartrazine Rash Medium 10/11/2017 Tramadol Rash Medium 10/11/2017 Varenicline Other Low 10/11/2017 suicidal Medications * Be aware that medications may not be up to date on this document. Alwaysverify current medications with the patient. sulfamethoxazole -trimethoprim (BACTRIM DS; SEPTRA DS) 800-160 MG tablet Take 1 tablet by mouth BID. 20 tablet 0 10/14/2017 Active HYDROcodone-acet aminophen (NORCO) 5-325 MG tablet 09/03/2017 Active oxybutynin (DITROPAN) 5 MG tablet 09/16/2017 Active albuterol-ipratr opium (DUO-NEB) 0.5-2.5 (3) MG/3ML nebulizer solution 09/26/2017 Active triamcinolone acetonide (KENALOG) 0.1 % cream 07/26/2017 Active atorvastatin (LIPITOR) 80 MG tablet 09/24/2017 Active methocarbamol (ROBAXIN) 750 MG tablet 09/20/2017 Active gabapentin (NEURONTIN) 300 MG capsule 10/01/2017 Active venlafaxine (EFFEXOR) 100 MG tablet 09/17/2017 Active medroxyPROGESTER one (DEPO-PROVERA) 150 MG/ML vial 08/23/2017 Acti ve etodolac (LODINE) 400 MG tablet 08/16/2017 Active hyoscyamine CR 12hr (LEVBID) 0.375 MG tablet 09/18/2017 Act melquiades hydrOXYzine pamoate (VISTARIL) 50 MG capsule 09/14/2017 Active lamoTRIgine (LAMICTAL) 200 MG tablet 09/15/2017 Active lisinopril (PRINIVIL; ZESTRIL) 40 MG tablet 09/23/2017 Active albuterol HFA (PROAIR HFA) 108 (90 BASE) MCG/ACT inhaler 09/27/2017 Act melquiades raNITIdine (ZANTAC) 300 MG tablet 09/11/2017 Active fluPHENAZine (PROLIXIN) 2.5 MG tablet 09/15/2017 Active Active Problems Problem Noted Date Diagnosed Date Urge incontinence 10/11/2017 Frequency of micturition 10/11/2017 Nocturia 10/11/2017 Stress incontinence 10/11/2017 Family History Medical History Relation Name Comments Pulmonary Embolism Father Depression Mother Hypertension Mother Relation Name Status Comments Father Mother Social History Tobacco Use Types Packs/Day Years Used Date Smoking Tobacco: Every Day Cigarettes Smokeless Tobacco: Never Alcohol Use Standard Drinks/Week Comments No 0 (1 standard drink = 0.6 oz pur e alcohol) Comments Unknown Sex and Gender Information Value Date Recorded Sex Assigned at Not on file Legal Sex Female 5:22 PM FORGER HELPER Gender Identity Not on file Sexual Orientation Not on file Last Filed Vital Signs Vital Sign Reading Time Taken Comments Blood Pressure - - Pulse - - Temperature - - Respiratory Rate - - Oxygen Saturation - - Inhaled Oxygen Concentration - - Weight 110.2 kg (243 lb) 10/11/2017 4:27 PM FORGER HELPER Height - - Body Mass Index - - Plan of Treatment Health Maintenance Due Date Last Done Comments MILKA (AGES 45-75) - COL ON CA SCREENING 1978 COLON MONITORING 1978 COLONOSCOPY - COLON CA SCREENING 1978 CT COLONOGRAPHY - COLON CA SCREENING 1978 Colorectal Cancer Screening 1978 FIT - COLON CA SCREENING 1978 FLEX SIG - COLON CA SCREENING 1978 MAMMOGRAM 1978 HIV SCREENING 1993 HEPATITIS C SCREENING 08/30/1996 DTAP/TDAP/TD VACCINES (1 - Tdap) 1997 HEPATITIS B VACCINE (1 of 3 - 19+ 3-dose series) 1997 PNEUMOCOCCAL VACCINE (1 of 2 - PCV) 1997 COVID-19 VACCINE (1 - 2023-2 5 season) 2024 DEPRESSION SCREENING 08/26/2024 INFLUENZA VACCINE (Season Ended) 2025 ZOSTER VACCINE (1 of 2) 2028 HIB VACCINE Aged Out No longer eligi ble based on patient's age to complete this topic HPV VACCINE Aged Out No longer eligi ble based on patient's age to complete this topic MENINGOCOCCAL (Group B) VACC INE SHARED DECISION-MAKING Aged Out No longer eligibl e based on patient's age to complete this topic MENINGOCOCCAL GROUPS A/C/Y/W VACCINE Aged Out No longer eligible b ased on patient's age to complete this topic Insurance MEDICARE MEDICAID - OUT OF [facility] Care Teams Chief Operator Relationship Specialty Start Date End Date Shantell Garrett MD [address] [place] [id number] PCP - General 05/08/17
--- OUTSIDE RECORDS SUMMARY | 2025-01-01 18:00 | XMS_ITS | Encounter Summary ---
Author Organization [facility] Address [facility] [place] [address] Care Team Providers Care Mailroom Supervisor Name Role Phone Melanie Hernandez MD Primary Care Provider [phone] Contreras Ramesh MD Unavailable [phone] Gaby Calix MD Primary Care Provider [phone] Encounter Details Date Type Department Care Team (Late st Contact Info) Description 03/04/2018 Abstract [facility] at [address] [address] Alice Ibanez MA Social History Tobacco Use Types Packs/Day Years Used Date Smoking Tobacco: Every Day Cigarettes 0.5 27 Smokeless Tobacco: Never Alcohol Use Standard Drinks/Week Comments No 0 (1 standard drink = 0.6 oz pur e alcohol) Comments Unknown Sex and Gender Information Value Date Recorded Sex Assigned at Not on file Legal Sex Female 8:10 AM ASSISTANT PROFESSOR OF BUSINESS Gender Identity Not on file Sexual Orientation Not on file Occupation Industry Job Start Date Job End Date Not on file Not on file Not on file Not on file documented as of this encounter Plan of Treatment Not on file documented as of this encounter Procedures Procedure Name Priority Date/Time Associated Diagnosis Comments CBC (OUTSIDE LAB) Routine 02/20/2018 COMPREHENSIVE METABOLIC PANEL Routine 02/20/2018 documented in this encounter Results * (ABNORMAL) COMPREHENSIVE METABOLIC PANEL (02/20/2018) SODIUM S/P/B 132 POTASSIUM S/P/B 3.8 CO2 21.4 CHLORIDE S/P/B 100 GLUCOSE 109 mg/dL CALCIUM S/P/B 8.3 BUN 21 CREATININE S/P/B 1.12(A) 0.5 - 1.0 EGFR AFR. AMER. 72 <=90 EGFR NON-AFR. AMER. 62 <=90 ALKALINE PHOSPHATASE S/P/B 109 ALT 40 AST 21 BILIRUBIN TOTAL S/P/B 0.4 ALBUMIN S/P/B 3.9 3.5 - 5.0 TOTAL PROTEIN S/P/B 7.6 02/20/2018 [facility] Abstract LABORATORY Final Result * CBC (OUTSIDE LAB) (02/20/2018) WBC 11.1 HGB 12.1 HCT 36.7 PLT 344 02/20/2018 us [facility] Abstract LAB-OUTSIDE/ABSTRACTED Final Result documented in this encounter Visit Diagnoses Not on filedocumented in this encounter Additional Health Concerns Infection Onset Date Last Indicated Resolved Time MRSA 04/05/2017 04/05/2017 COVID-19 Rule Out 11/15/2023 11/15/2023 11/15/2023 4:59 PM CDT documented as of this encounter Care Teams Mailroom Supervisor Relationship Specialty Start Date End Date Melanie Hernandez MD [address] [facility] [address] [place] [address] PCP - General 07/19/16 11/02/21 Gaby Calix MD [address] [facility] [address] [place] [address] PCP - General FAMILY PRACTICE 11/03/21 Contreras Ramesh MD Three [facility]. [facility] [address] [place] [address] [place] Natural Science Manager CARDIOVASCULAR DISEASE 05/17/17 documented as of this encounter
[2025-01-01 18:06] VITALS: BP 119/67; PULSE 84; RESP 16; TEMP 36.8; O2SAT 99
== END 2025-01-01 18:20 | disposition home or self-care (01) ==
PROVIDERS: Emergency Provider Nurse Practitioner Family; PCP Family Medicine
DX: G50.1 Atypical facial pain (principal); H92.01 Otalgia, right ear; J44.9 Chronic obstructive pulmonary disease, unspecified; I10 Essential (primary) hypertension; K21.9 Gastro-esophageal reflux disease without esophagitis; M79.7 Fibromyalgia; Z85.41 Personal history of malignant neoplasm of cervix uteri; F17.210 Nicotine dependence, cigarettes, uncomplicated; F31.9 Bipolar disorder, unspecified; F41.9 Anxiety disorder, unspecified
CPT/HCPCS: 99212; G0463

== ENCOUNTER 2025-05-20 14:16 | Outpatient (CLI) | payer MEDICARE, MEDICAID, SELFPAY ==
--- NOTE | ~2025-05-20 | XR_ITS ---
EXAMINATION: XR chest 2V 05/20/2025 14:27 INDICATION: Cough for weeks PROCEDURE: 2 view chest COMPARISON: Comparison to multiple prior studies sequentially, with oldest reviewed study dated 08/09/2022. FINDINGS: The lungs are clear. The cardiomediastinal silhouette is within normal limits. There are no pleural effusions. There is no pneumothorax suspected. IMPRESSION: 1: NO ACUTE CARDIOPULMONARY DISEASE. Reviewed, dictated and finalized at location O.
--- OUTSIDE RECORDS SUMMARY | 2025-05-20 16:56 | XMS_ITS | Clinical Summary ---
Author Organization [facility] Address [address] [place] [address] Care Team Providers Care Gear Lapping Machine Operator Name Role Phone Tiana Meza DO Primary Care Provider Vignesh MEHTA MD, [facility] [phone] Allergies Active Allergy Reactions Criticality Noted Date [...] 08/08/2020 Assessment & Plan (09/29/2020 2:50 PM SKI LIFT OPERATOR): Patient reports no additional syncopal episodes since [...] basis. Assessment & Plan (08/08/2020 3:41 PM SKI LIFT OPERATOR): Patient has several year history of frequently [...] referral for video EEG consideration as well. Encounters Date Type Department Care Team Description 05/06/2025 Telephone Obstetrics and Gynecology Clinic [address] [facility] [address] [facility] 3rd Floor [address] [place] [address] Jerome Moser from Last 3 Months Surgical History Surgery Date Site/Laterality Comments SECTION [...] 8:02 AM CDT Height 170.2 cm (5' 7) 05/24/2024 8:02 AM CDT Body Mass Index 34.46 05/24/2024 8:02 AM CDT Plan of Treatment Health Maintenance Due Date Last Done Comments Breast Cancer Screening-Mammogram 1978 Cervical Cancer Screening 1978 Colon Cancer Screening-Colonoscopy 1978 Depression Screening 1978 Hepatitis C Screening 1978 Hepatitis B Screening 1996 Regular Well Visit/Exam 18-64 1996 Pneumococcal vaccine <65 (2 of 2 - PCV) 05/09/2018 05/09/2017 Influenza Vaccine (#1) 2025 0, 09/30/2018, 05/26/2017, Additional history exists DTaP/Tdap/Td Vaccine (2 - Td or Tdap) 08/14/2027 08/14/2017 HPV Vaccines Aged Out No longer eligi ble based on patient's age to complete this topic Insurance MEDICARE [facility] MEDICARE [facility] AETNA [facility] MEDICARE [facility] Address: [address] [address] [place] [address] [facility] Care Teams Gear Lapping Machine Operator Relationship Specialty Start Date End Date Tiana Meza DO [address] [facility] [address] [place] [address] PCP - General Family Practice 06/21/20 Tan Medellin III, MD [address] [place] [address] Consulting Physician Rheumatology 05/18/21
--- OUTSIDE RECORDS SUMMARY | 2025-05-20 16:56 | XMS_ITS | Clinical Summary ---
Author Organization [facility] Address [address], [facility] [address] [place] [address] Phone Care Team Providers Care Dental Amalgam Processor Name Role Phone Melanie Hernandez MD Primary Care Provider [phone] Khurram Carrero MD Unavailable [phone] Allergies Active Allergy Reactions Criticality Noted Date [...] Date Smoking Tobacco: Every Day Cigarettes 0.5 34.7 Started: 1990 Smokeless Tobacco: Never Tobacco Cessation:Ready [...] on file Legal Sex Female 9:19 AM LANDSCAPING MANAGER Gender Identity Not on file Sexual Orientation Not on file Last Filed Vital Signs Vital Sign Reading Time Taken Comments Blood Pressure 110/80 08/03/2021 11:33 AM LANDSCAPING MANAGER Pulse 92 08/03/2021 11:33 AM LANDSCAPING MANAGER Temperature 37 C (98.6 F) 08/03/2021 11:33 AM LANDSCAPING MANAGER Respiratory Rate 18 08/03/2021 11:3 3 AM LANDSCAPING MANAGER Oxygen Saturation 95% 08/03/2021 11: 33 AM LANDSCAPING MANAGER Inhaled Oxygen Concentration - - Weight 114.9 kg (253 lb 3.2 oz) 021 11:33 AM LANDSCAPING MANAGER Height 170.2 cm (5' 7) 08/03/2021 11:3 3 AM LANDSCAPING MANAGER Body Mass Index 39.66 08/03/2021 11:33 AM LANDSCAPING MANAGER Plan of Treatment Health Maintenance Due Date Last Done Comments Hepatitis C Virus (HCV) Screening 1978 Hepatitis B Immunization (1 of 3 - 19+ 3-dose series) 1997 Pap Smear 1999 Cervical Cancer Screening (CCS) 2008 HPV/Cotest 2008 Cologuard 2023 Colonoscopy 2023 Colorectal Cancer Screening 2023 Immunochemical Fecal Occult Blood 2023 Influenza Immunization (#1) 2025 092 12/2019, 09/30/2018, 05/26/2017, Additional history exists SARS-COV-2 Immunization (2023- season) 2025 Respiratory Syncytial Virus (RSV) Immunization (Adult) (1 - 1-dose 75+ series) 2053 Pneumococcal Immunization Combined Aged Out 05/09/2017 No longer eligible based on patient's age to complete this topic DTaP/Tdap/Td Immunization Discontinued 08/14/2017 Human Papillomavirus (HPV) Immunization Aged Out No longer eligible based on patient's age to complete this topic Meningococcal Immunization (ACWY) Aged Out No longer eligible based on patient's age to complete this topic Rotavirus Immunization Aged Out No lo nger eligible based on patient's age to complete this topic Insurance MEDICARE MEDICAID [place] Care Teams Dental Amalgam Processor Relationship Specialty Start Date End Date Melanie Hernandez MD 3 [facility] [address] [place] [address] PCP - General Family Medicine 10/03/20 Khurram Carrero MD [address] [place] [address] Consulting Physician Oncology 10/03/20
--- OUTSIDE RECORDS SUMMARY | 2025-05-20 16:56 | XMS_ITS | Clinical Summary ---
Author Organization [facility] [employer] Address [address] [place] [address] Care Team Providers Care Rn Gyn Name Role Phone Shantell Garrett MD Primary Care Provider [phone] Source Comments [facility] [employer],non-owned Affiliates and Associated Physician Practices is amultiple site organization consisting of ambulatory clinics and hospital sitesin [place], [place], [place] and [place]. This disclosure is being madepursuant to the Care Everywhere program and may not contain all information available regarding this patient. Last updated 18.[facility] [employer] Allergies Active Allergy Reactions Criticality Noted Date [...] on file Legal Sex Female 5:22 PM PRN PHYSICAL THERAPIST Gender Identity Not on file Sexual Orientation Not on file Last Filed Vital Signs Vital Sign Reading Time Taken Comments Blood Pressure - - Pulse - - Temperature - - Respiratory Rate - - Oxygen Saturation - - Inhaled Oxygen Concentration - - Weight 110.2 kg (243 lb) 10/11/2017 4:27 PM PRN PHYSICAL THERAPIST Height - - Body Mass Index - [...] VACCINE (1 of 2 - PCV) 1997 DEPRESSION SCREENING 08/26/2024 COVID-19 VACCINE (1 - 2023-2 5 season) 2025 INFLUENZA VACCINE (#1) 2025 ZOSTER VACCINE (1 of 2) 2028 [...] topic Insurance MEDICARE MEDICAID - OUT OF [facility] Care Teams Rn Gyn Relationship Specialty Start Date End Date Shantell Garrett MD [address] [place] [id number] PCP - General 05/08/17
== END 2025-05-20 14:17 | disposition home or self-care (01) ==
PROVIDERS: PCP Family Medicine; Visit Provider Nurse Practitioner Family
DX: R05.9 Cough, unspecified (principal)
CPT/HCPCS: 71046

== ENCOUNTER 2025-07-25 10:53 | Emergency (ER) | payer MEDICARE, MEDICAID, SELFPAY ==
--- OUTSIDE RECORDS SUMMARY | 2025-07-25 10:55 | XMS_ITS | Clinical Summary ---
Author Organization [facility] [employer] Address [address] [place] [address] Care Team Providers Care Infertility Medical Assistant Name Role Phone Shantell Garrett MD Primary Care Provider [phone] Source Comments [facility] [employer],non-owned Affiliates and Associated Physician Practices is amultiple site organization consisting of ambulatory clinics and hospital sitesin [place], [place], [place] and [place]. This disclosure is being madepursuant to the Care Everywhere program and may not contain all information available regarding this patient. Last updated 18.[facility] [employer] Allergies Active Allergy Reactions Criticality Noted Date [...] on file Legal Sex Female 5:22 PM DOOR CLOSER Gender Identity Not on file Sexual Orientation Not on file Last Filed Vital Signs Vital Sign Reading Time Taken Comments Blood Pressure - - Pulse - - Temperature - - Respiratory Rate - - Oxygen Saturation - - Inhaled Oxygen Concentration - - Weight 110.2 kg (243 lb) 10/11/2017 4:27 PM DOOR CLOSER Height - - Body Mass Index - [...] VACCINE (1 of 2 - PCV) 1997 PAP SMEAR 1999 Cervical Cancer Screening 2008 PAP with HPV 2008 DEPRESSION SCREENING 08/26/2024 COVID-19 VACCINE (1 - 2024-2 6 season) 2025 INFLUENZA VACCINE (#1) 2025 ZOSTER [...] topic Insurance MEDICARE MEDICAID - OUT OF STATE Care Teams Infertility Medical Assistant Relationship Specialty Start Date End Date Shantell Garrett MD [address] [facility] [address] [place] [address] PCP - General 05/08/17
--- OUTSIDE RECORDS SUMMARY | 2025-07-25 10:55 | XMS_ITS | Clinical Summary ---
Author Organization [facility] Address [address] [place] [address] Care Team Providers Care Supervisor Industrial Arts Education Name Role Phone Tiana Meza DO Primary Care Provider Vignesh MEHTA MD, [facility] [phone] Allergies Active Allergy Reactions Criticality Noted Date [...] 08/08/2020 Assessment & Plan (09/29/2020 2:50 PM MOLD MAKING SUPERVISOR): Patient reports no additional syncopal episodes since [...] basis. Assessment & Plan (08/08/2020 3:41 PM MOLD MAKING SUPERVISOR): Patient has several year history of frequently [...] Description 05/06/2025 Telephone Obstetrics and Gynecology Clinic [address] [facility] Out[address] Health 3rd Floor [address] [place] [address] Jerome Moser from Last 3 [...] age to complete this topic Insurance MEDICARE [facility] MEDICARE [facility] MEDICARE [facility] Address: [address] [address] [place] [address] [facility] Care Teams Supervisor Industrial Arts Education Relationship Specialty Start Date End Date Tiana Meza DO [address] [facility] [address] [place] [address] PCP - General Family Practice 06/21/20 Tan Medellin III, MD [address] [place] [address] Consulting Physician Rheumatology 05/18/21
--- OUTSIDE RECORDS SUMMARY | 2025-07-25 10:55 | XMS_ITS | Encounter Summary ---
Author Organization [facility] Address [facility] [place] [address] Care Team Providers Care Ehr Trainer Name Role Phone Melanie Hernandez MD Primary Care Provider [phone] Contreras Ramesh MD Unavailable [phone] Gaby Calix MD Primary Care Provider [phone] Encounter Details Date Type Department Care Team (Late st Contact Info) Description 01/24/2017 Abstract [facility] CONVERSION [address] [place] [address] , Generic Conversion, Social History Tobacco Use Types Packs/Day Years Used Date Smoking Tobacco: Never Assessed Comments Unknown Sex and Gender Information Value Date Recorded Sex Assigned at Not on file Legal Sex Female 8:10 AM INDUSTRIAL ENGINEER Gender Identity Not on file Sexual Orientation Not on file documented as of this encounter Plan of Treatment Not on file documented as of this encounter Visit Diagnoses Not on filedocumented in this encounter Additional Health Concerns Infection Onset Date Last Indicated Resolved Time MRSA 04/05/2017 04/05/2017 COVID-19 Rule Out 11/15/2023 11/15/2023 11/15/2023 4:59 PM CDT documented as of this encounter Care Teams Ehr Trainer Relationship Specialty Start Date End Date Melanie Hernandez MD 3 [facility] [address] [place] [address] PCP - General 07/19/16 11/02/21 Gaby Calix MD [address] [facility] [address] [place], [place] [address] PCP - General FAMILY PRACTICE 11/03/21 Contreras Ramesh MD [address] [facility]. [address] [place], [place] [id number] [place] Heating And Ventilating Drafter CARDIOVASCULAR DISEASE 05/17/17 documented as of this encounter
--- OUTSIDE RECORDS SUMMARY | 2025-07-25 10:55 | XMS_ITS | Encounter Summary ---
Author Organization [facility] Address [facility] [place] [address] Care Team Providers Care Purchasing Manager Name Role Phone Contreras Ramesh MD Unavailable [phone] Gaby Calix MD Primary Care Provider [phone] Encounter Details Date Type Department Care Team (Late st Contact Info) Description 03/24/2024 [employer] Message Enc [place] THREE [facility] [address] [place], [place] [id number] Contreras Ramesh MD Three [facility]. [address] [place], [place] [id number] [place] Contreras Social History Tobacco Use Types Packs/Day Years Used Date Smoking Tobacco: Every Day Cigarettes 0.5 27 Smokeless Tobacco: Never Alcohol Use Standard Drinks/Week Comments No 0 (1 standard drink = 0.6 oz pur e alcohol) Comments No Sex and Gender Information Value Date Recorded Sex Assigned at Not on file Legal Sex Female 8:10 AM HYBRID CAR MECHANIC Gender Identity Not on file Sexual Orientation [...] documented as of this encounter Care Teams Purchasing Manager Relationship Specialty Start Date End Date Gaby Calix MD 3 [facility] [address] [place] [address] PCP - General FAMILY PRACTICE 11/03/21 Contreras Ramesh MD Three [facility]. [address] [place] [address] [place] [employer] Representative CARDIOVASCULAR DISEASE 05/17/17 documented as of this encounter
--- OUTSIDE RECORDS SUMMARY | 2025-07-25 10:55 | XMS_ITS | Encounter Summary ---
Author Organization [facility] Address [facility] [place] [address] Care Team Providers Care Batch Tank Controller Name Role Phone Melanie Hernandez MD Primary Care Provider [phone] Contreras Ramesh MD Unavailable [phone] Gaby Calix MD Primary Care Provider [phone] Encounter Details Date Type Department Care Team (Late st Contact Info) Description 01/10/2017 Abstract [facility] [address]VERSION [address] [place] [address] , Generic Conversion, Social History Tobacco Use Types Packs/Day Years Used Date Smoking Tobacco: Never Assessed Comments Unknown Sex and Gender Information Value Date Recorded Sex Assigned at Not on file Legal Sex Female 8:10 AM FIRE AND SAFETY HELPER Gender Identity Not on file Sexual [...] documented as of this encounter Care Teams Batch Tank Controller Relationship Specialty Start Date End Date Melanie Hernandez MD [address] [facility] [address] [place] [address] PCP - General 07/19/16 11/02/21 Gaby Calix MD [address] [facility] [address] [place], [place] [address] PCP - General FAMILY PRACTICE 11/03/21 Contreras Ramesh MD Three [facility]. [address] [place], [place] [id number] [place] Housekeeping Lead CARDIOVASCULAR DISEASE 05/17/17 documented as of this encounter
--- OUTSIDE RECORDS SUMMARY | 2025-07-25 10:55 | XMS_ITS | Encounter Summary ---
Author Organization [facility] Address [facility] [place] [address] Care Team Providers Care Economics Department Chair Name Role Phone Melanie Hernandez MD Primary Care Provider [phone] Contreras Ramesh MD Unavailable [phone] Gaby Calix MD Primary Care Provider [phone] Encounter Details Date Type Department Care Team (Late st Contact Info) Description 04/11/2016 Abstract [facility] CONVERSION [address] [place] [address] , Generic Conversion, Social History Tobacco Use Types Packs/Day Years Used Date Smoking Tobacco: Never Assessed Comments Unknown Sex and Gender Information Value Date Recorded Sex Assigned at Not on file Legal Sex Female 8:10 AM RN CLINICAL APPEALS Gender Identity Not on file Sexual Orientation Not on file documented as of this encounter Plan of Treatment Not on file documented as of this encounter Visit Diagnoses Not on filedocumented in this encounter Additional Health Concerns Infection Onset Date Last Indicated Resolved Time MRSA 04/05/2017 04/05/2017 COVID-19 Rule Out 11/15/2023 11/15/2023 11/15/2023 4:59 PM CDT documented as of this encounter Care Teams Economics Department Chair Relationship Specialty Start Date End Date Melanie Hernandez MD 3 [facility] [address] [place] [address] PCP - General 07/19/16 11/02/21 Gaby Calix MD [address] [facility] [address] [place], [place] [address] PCP - General FAMILY PRACTICE 11/03/21 Contreras Ramesh MD Three [facility]. [address] [place], [place] [id number] [place] Production Trainer CARDIOVASCULAR DISEASE 05/17/17 documented as of this encounter
--- OUTSIDE RECORDS SUMMARY | 2025-07-25 10:55 | XMS_ITS | Encounter Summary ---
Author Organization [facility] Address [facility] [place] [address] Care Team Providers Care School Physical Therapist Name Role Phone Melanie Hernandez MD Primary Care Provider [phone] Contreras Ramesh MD Unavailable [phone] Gaby Calix MD Primary Care Provider [phone] Encounter Details Date Type Department Care Team (Late st Contact Info) Description 05/16/[address] 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 Gender Identity Not on file Sexual Orientation Not on file documented as of this encounter Plan of Treatment Not on file documented as of this encounter Visit Diagnoses Not on filedocumented in this encounter Additional Health Concerns Infection Onset Date Last Indicated Resolved Time MRSA 04/05/2017 04/05/2017 COVID-19 Rule Out 11/15/2023 11/15/2023 11/15/2023 4:59 PM CDT documented as of this encounter Care Teams School Physical Therapist Relationship Specialty Start Date End Date Melanie Hernandez MD 3 [facility] [address] [place] [address] PCP - General 07/19/16 11/02/21 Gaby Calix MD [facility] [address] [place], [place] [address] PCP - General FAMILY PRACTICE 11/03/21 Contreras Ramesh MD Three [facility]. [address] [place], [place] [id number] [place] Product Representative CARDIOVASCULAR DISEASE 05/17/17 documented as of this encounter
--- OUTSIDE RECORDS SUMMARY | 2025-07-25 10:55 | XMS_ITS | Encounter Summary ---
Author Organization [facility] Address [facility] [place] [address] Care Team Providers Care Recruiting Associate Name Role Phone Melanie Hernandez MD Primary Care Provider [phone] Contreras Ramesh MD Unavailable [phone] Gaby Calix MD Primary Care Provider [phone] Encounter Details Date Type Department Care Team (Late st Contact Info) Description 05/21/2017 Abstract [facility] [place] [address] [place] [address] Yumiko Montelongo, 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 [facility] [address] [place] [address] Gianni Silverware Etcher CARDIOVASCULAR DISEASE 05/17/17 documented as of this encounter
--- OUTSIDE RECORDS SUMMARY | 2025-07-25 10:55 | XMS_ITS | Encounter Summary ---
Author Organization [facility] Address [facility] [place] [address] Care Team Providers Care Radiation Monitor Name Role Phone Melanie Hernandez MD Primary Care Provider [phone] Contreras Ramesh MD Unavailable Gaby Calix MD Primary Care Provider [phone] Encounter Details Date Type Department Care Team (Late st Contact Info) Description 05/08/2016 Abstract [facility] CONVERSION [address] [place] [address] , Generic Conversion, Social History Tobacco Use Types Packs/Day Years Used Date Smoking Tobacco: Never Assessed Comments Unknown Sex and Gender Information Value Date Recorded Sex Assigned at Not on file 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 [address] [place], [place] [id number] [place] Director Of Sales Support CARDIOVASCULAR DISEASE 05/17/17 documented as of this encounter
--- OUTSIDE RECORDS SUMMARY | 2025-07-25 10:55 | XMS_ITS | Encounter Summary ---
Author Organization [facility] Address [facility] [place] [address] Care Team Providers Care Mortgage Professional Name Role Phone Melanie Hernandez MD Primary Care Provider [phone] Contreras Ramesh MD Unavailable [phone] Gaby Calix MD Primary Care Provider [phone] Encounter Details Date Type Department Care Team (Late st Contact Info) Description 01/30/2016 Abstract [facility] CONVERSION [address] [place] [address] , Generic Conversion, Social History Tobacco Use Types Packs/Day Years Used Date Smoking Tobacco: Never Assessed Comments Unknown Sex and Gender Information Value Date Recorded Sex Assigned at Not on file Legal Sex Female 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 DIRECTOR TEEN POST Gender Identity Not on file Sexual Orientation Not on file documented as of this encounter Plan of Treatment Not on file documented as of this encounter Visit Diagnoses Not on filedocumented in this encounter Additional Health Concerns Infection Onset Date Last Indicated Resolved Time MRSA 04/05/2017 04/05/2017 COVID-19 Rule Out 11/15/2023 11/15/2023 11/15/2023 4:59 PM CDT documented as of this encounter Care Teams Mortgage Professional Relationship Specialty Start Date End Date Melanie Hernandez MD 3 [facility] [address] [place] [address] PCP - General 07/19/16 11/02/21 Gaby Calix MD [address] [facility] [address] [place], [place] [address] PCP - General FAMILY PRACTICE 11/03/21 Contreras Ramesh MD Three [facility]. [address] [place], [place] [phone] [place] Draw End Hand CARDIOVASCULAR DISEASE 05/17/17 documented as of this encounter
--- OUTSIDE RECORDS SUMMARY | 2025-07-25 10:55 | XMS_ITS | Encounter Summary ---
Author Organization [facility] Address [facility] [place] [address] Care Team Providers Care Metal Drawer Name Role Phone Melanie Hernandez MD Primary Care Provider [phone] Contreras Ramesh MD Unavailable [phone] Gaby Calix MD Primary Care Provider [phone] Encounter Details Date Type Department Care Team (Late st Contact Info) Description 03/04/2018 Abstract [facility] at [address] [address] Alice Ibanez MA Social History Tobacco Use Types Packs/Day Years Used Date Smoking Tobacco: Every Day Cigarettes 0.5 27 Smokeless Tobacco: Never Alcohol Use Standard Drinks/Week Comments No 0 (1 standard drink = 0.6 oz pur e alcohol) Comments Unknown Sex and Gender Information Value Date Recorded Sex Assigned at Not on file 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 [facility] [address] [place] [address] [place] Bun Panner CARDIOVASCULAR DISEASE 05/17/17 documented as of this encounter
--- OUTSIDE RECORDS SUMMARY | 2025-07-25 10:55 | XMS_ITS | Clinical Summary ---
Author Organization [facility] Address [address], [facility] [address] [place] [address] Phone Care Team Providers Care Cabinet And Trim Installer Name Role Phone Melanie Hernandez MD Primary Care Provider [phone] Khurram Carrero MD Unavailable [phone] Allergies Active Allergy Reactions Criticality Noted Date [...] Date Smoking Tobacco: Every Day Cigarettes 0.5 34.9 Started: 1992 Smokeless Tobacco: Never Tobacco Cessation:Ready [...] on file Legal Sex Female 9:19 AM SENIOR SECURITY ENGINEER Gender Identity Not on file Sexual Orientation Not on file Last Filed Vital Signs Vital Sign Reading Time Taken Comments Blood Pressure 110/80 08/03/2021 11:33 AM SENIOR SECURITY ENGINEER Pulse 92 08/03/2021 11:33 AM SENIOR SECURITY ENGINEER Temperature 37 C (98.6 F) 08/03/2021 11:33 AM SENIOR SECURITY ENGINEER Respiratory Rate 18 08/03/2021 11:3 3 AM SENIOR SECURITY ENGINEER Oxygen Saturation 95% 08/03/2021 11: 33 AM SENIOR SECURITY ENGINEER Inhaled Oxygen Concentration - - Weight 114.9 kg (253 lb 3.2 oz) 021 11:33 AM SENIOR SECURITY ENGINEER Height 170.2 cm (5' 7) 08/03/2021 11:3 3 AM SENIOR SECURITY ENGINEER Body Mass Index 39.66 08/03/2021 11:33 AM SENIOR SECURITY ENGINEER Plan of Treatment Health Maintenance Due Date Last Done Comments Hepatitis C Virus (HCV) Screening 1978 Hepatitis B Immunization (1 of 3 - 19+ 3-dose series) 1997 Pap Smear 1999 Cervical Cancer Screening (CCS) 2008 HPV/Cotest 2008 Medicare Initial AWV [id number] 03/26/2016 Cologuard 2023 Colonoscopy 2023 Colorectal Cancer Screening 2023 Immunochemical Fecal Occult Blood 2023 Influenza Immunization (#1) 04/26/202504/27, 09/30/2018, 05/26/2017, Additional history exists SARS-COV-2 Immunization (2024- season) 2025 Respiratory Syncytial Virus (RSV) Immunization [...] topic Insurance MEDICARE MEDICAID [place] Care Teams Cabinet And Trim Installer Relationship Specialty Start Date End Date Melanie Hernandez MD 3 [facility] [address] [place] [address] PCP - General Family Medicine 10/03/20 Khurram Carrero MD [address] [place] [id number] Consulting Physician Oncology 10/03/20
--- OUTSIDE RECORDS SUMMARY | 2025-07-25 10:55 | XMS_ITS | Clinical Summary ---
Author Organization [facility] Address [facility] [place] [address] Care Team Providers Care Contracting Support Specialist Name Role Phone Contreras Ramesh MD Unavailable [phone] Gaby Calix MD Primary Care Provider [phone] Allergies Active Allergy Reactions Criticality Noted Date Comments Amoxicillin-Pot Clavulanate Nausea and Vomiting Medium 03/23/2024 Varenicline Other (see comment) 11/29/2017 suicidal Codeine Hives 05/21/2017 Duloxetine Hcl Unknown 05/21/2017 Miconazole Unknown 05/21/2017 Oxycodone-Acetaminophen Unknown 05/21/2017 Tramadol Unknown 05/21/2017 Medications atorvastatin 80 MG tablet Take 1 tablet by mouth daily. 3 11/21/19 18 Active lisinopril 40 MG tablet Take 1 tablet by mouth daily. 3 11/21/19 18 Active PROAIR HFA 108 (90 BASE) MCG/ACT inhaler Inhale 2 puffs into the lungs every 6 (six) hours as needed. 3 11/25/19 18 Active methocarbamol 750 MG Tab Take 1 tablet by mouth 3 (three) times daily. 2 11/21/19 18 Active hyoscyamine CR 0.375 MG 12 hr tablet Take 1 tablet by mouth 2 (two) times daily. 2 11/13/19 18 Active venlafaxine 100 MG tablet Take 1 tablet by mouth 3 (three) times daily. 1 11/13/19 18 Active lamoTRIgine 200 MG tablet Take 1 tablet by mouth daily. 1 11/12/19 18 Active ranitidine 300 MG tablet Take 1 tablet by mouth daily. 3 11/08/19 18 Active zolpidem 5 MG tablet Take 1 tablet by mouth nightly at bedtime. 0 11/07/19 18 Active mirtazapine 30 MG tablet Take 1 tablet by mouth daily. 3 10/30/19 18 Active ipratropium-al buterol 0.5-2.5 (3) MG/3ML Solution Take 3 mLs by nebulization daily. 0 11/09/19 18 Active omeprazole 40 MG capsule Take 1 capsule (40 mg total) by mouth daily. 11/30/19 18 Active ferrous sulfate EC 324 (65 Fe) MG tablet Take 1 tablet (324 mg total) by mouth 2 (two) times daily with meals. 30 tablet 07/19/20 Active HYDROcodone-ac etaminophen (NORCO) 5-325 MG tabletIndicati ons:Acute Pain < 7 Day Supply Take 1 tablet by mouth every 4 (four) hours as needed for Pain (max 6 tabs a day). Indications: Acute Pain < 7 Day Supply 15 tablet 07/17/20 Active cyclobenzaprin e (FLEXERIL) 10 MG tablet Take 1 tablet (10 mg total) by mouth 3 (three) times daily as needed for Muscle Spasms. 30 tablet 07/17/20 25 Active gabapentin (NEURONTIN) 100 MG capsule Take 1 capsule (100 mg total) by mouth 2 (two) times a day for 30 days. 60 capsule 07/17/20 25 Active gabapentin 300 MG capsule Take 2 capsules by mouth 3 (three) times daily. 3 11/26/19 18 Discontinued predniSONE 50 MG tablet Take 1 tablet (50 mg total) by mouth daily for 4 days. 4 tablet 07/17/20 25 025 Active Problems Problem Noted Date Diagnosed Date Tobacco abuse 01/24/2018 History of DVT of lower extremity 01/24/2018 Obesity Hypertension, essential Dyslipidemia Encounters Date Type Department Care Team Description 07/17/2025 7:48 AM HUNTER SKIN DIVER - 07/17/2025 9:07 AM [facility] Emergency [facility] Emergency Room [address] [place] [address] Audrey Bahena MD Medical Problem Discharge Disposition: Home or Self Care (Routine Discharge) 07/17/2025 Travel 05/21/2025 7:42 PM CDT - 05/21/2025 8:16 PM CDT Emergency [facility] Emergency Room [address] [place] [address] Roe Rao MD URI Discharge Disposition: Home or Self Care (Routine Discharge) 05/21/2025 Travel from Last 3 Months Family History Medical History Relation Comments Stent [...] on file Legal Sex Female 8:10 AM HUNTER SKIN DIVER Gender Identity Not on file Sexual Orientation Not on file Occupation Industry Job Start Date Job End Date Not on file Not on file Not on file Not on file Last Filed Vital Signs Vital Sign Reading Time Taken Comments Blood Pressure 132/76 07/17/2025 8:55 AM HUNTER SKIN DIVER Pulse 92 07/17/2025 7:41 AM HUNTER SKIN DIVER Temperature 36.1 C (97 F) 07/17/2025 8:55 AM HUNTER SKIN DIVER Respiratory Rate 18 07/17/2025 8:55 AM HUNTER SKIN DIVER Oxygen Saturation 95% 07/17/2025 8:55 AM HUNTER SKIN DIVER Inhaled Oxygen Concentration - - Weight 99.8 kg (220 lb) 07/17/2025 7:41 AM HUNTER SKIN DIVER Height 170.2 cm (5' 7) 07/17/2025 7:41 AM HUNTER SKIN DIVER Body Mass Index 34.46 07/17/2025 7:41 AM HUNTER SKIN DIVER Plan of Treatment Health Maintenance Due Date Last Done Comments Cervical Cancer Screening Pap Smear (Age 30 to 64) Every 3 Years 1978 Colorectal Cancer Screening Colonoscopy (10 Years) 1978 Annual Physical 1981 Hepatitis C 1996 Hepatitis B Vaccines (1 of 3 - 19+ 3-dose series) 1997 Cervical Cancer Screening Pap with HPV Testing (Age 30 to 64) Every 5 Years 2008 Cervical Cancer Screening with HPV 2008 Pneumococcal Vaccine: Pediatrics (0 to 5 Years) and At-Risk Patients (6 to 49 Years) (2 of 2 - PCV) 05/09/2018 05/09/2017 Mammogram Screening 2018 PHQ-2 (Physician [place]) 08/26/2024 COVID-19 Vaccine (1 - 2024- season) 2025 Influenza Adult (#1) 2025 05/20/2020, 09/30/2018, 05/26/2017, Additional history exists DTaP, Tdap and Td Vaccines (2 - Td or Tdap) 08/14/2027 08/14/2017 Hepatitis A Vaccines Aged Out No long er eligible based on patient's age to complete this topic Meningococcal B Vaccine Aged Out No l onger eligible based on patient's age to complete this topic Meningococcal Vaccine Aged Out No ezequiel mary eligible based on patient's age to complete this topic RSV Immunizations Under 20 Months Aged Out No longer eligible based on patient's age to complete this topic Procedures Procedure Name Priority Date/Time Associated Diagnosis Comments CT CERV SPINE WO CON STAT 07/17/2025 8:05 AM HUNTER SKIN DIVER from Last 3 Months Results * CT CERV SPINE WO CON (07/17/2025 8:05 AM HUNTER SKIN DIVER) Anatomical Region Laterality Modality Spine Computed Tomogra phy 07/17/2025 8:10 AM HUNTER SKIN DIVER Impressions 07/17/2025 8:17 AM HUNTER SKIN DIVER IMPRESSION: Degenerative changes of the cervical spine are present in the cervical spine, greatest at C5-6. There is suspected moderate canal stenosis and bilateral neural foraminal narrowing. There are posterior osteophytes are present. Cord compression is not excluded. Findings may be similar to increased compared back to prior MRI July 18, 2024. Follow-up MRI recommended. Referred By: Interpreted By: Guanakito Liu MD, 07/17/2025 8:10 AM Narrative 07/17/2025 8:17 AM HUNTER SKIN DIVER [facility] [address] [place] [address] Procedure(s): CT CERV SPINE WO CON Date of service: 07/17/2025 7:55 AM Provided clinical information: 44 years, Female, cervical radiculopathy Procedure and materials: Helical images of cervical spine are obtained from superior to the skull base to inferior to the thoracic inlet. Examination performed without intravenous contrast. A dose lowering technique was used for this procedure, which may include, but is not limited to, dose reduction technique, automated exposure control, iterative reconstruction, ALARA (As Low As Reasonably Achievable), or Image Gently techniques. Comparison studies: CT examination of July 03, 2024, MRI July 18, 2024. Findings: There is straightening of the normal cervical lordosis. There is loss of height of the disc space is present at C5-6. Allowing for change in technique between the CT and MRI examination findings appear to be similar. Anterior and posterior osteophytes are present about the about C5-6. No fracture, dislocation or bony abnormality the cervical spine. Lung apices are clear. No prevertebral soft tissue swelling is present. At C2-3 there is suggested minimal disc bulge slight effacement of the thecal sac. No canal stenosis or neural foraminal narrowing. At C3-4 there is suspected minimal disc bulge. No significant canal stenosis. The neural foramina are patent. At C4-5 suspected minimal disc bulge. Slight effacement of thecal sac. No canal stenosis or neural foraminal narrowing. At C5-6 there is diffuse disc bulge is present. There is moderate canal stenosis. Posterior osteophytic ridging is present. Cord compression is not excluded. Due to osteoarthritic changes there are bilateral neural foraminal narrowing changes. The findings may be similar to increased compared back to prior MRI of July 18, 2024. MRI recommended for further evaluation. At C6-7 minimal disc bulge is suggested. Slight effacement of thecal sac is suggested. No significant central canal stenosis or neural foraminal narrowing. No significant canal stenosis or neural foraminal narrowing is present at C7-T1. Procedure Note Guanakito Liu MD - 07/17/2025 [facility] [address] [place] [address] Procedure(s): CT CERV SPINE WO CON Date of service: 07/17/2025 7:55 AM Provided clinical information: 44 years, Female, cervicalradiculopathy Procedure and materials: Helical images of cervical spine are obtainedfrom superior to the skull base to inferior to the thoracic inlet.Examination performed without intravenous contrast. A dose lowering technique was used for this procedure, which may include,but is not limited to, dose reduction technique, automated exposurecontrol, iterative reconstruction, ALARA (As Low As ReasonablyAchievable), or Image Gently techniques. Comparison studies: CT examination of July 03, 2024, MRI June. Findings: There is straightening of the normal cervical lordosis. There is loss ofheight of the disc space is present at C5-6. Allowing for change intechnique between the CT and MRI examination findings appear to besimilar. Anterior and posterior osteophytes are present about the aboutC5-6. No fracture, dislocation or bony abnormality the cervical spine. Lung apices are clear. No prevertebral soft tissue swelling is present. At C2-3 there issuggested minimal disc bulge slight effacement of the thecal sac. No canalstenosis or neural foraminal narrowing. At C3-4 there is suspected minimal disc bulge. No significant canalstenosis. The neural foramina are patent. At C4-5 suspected minimal disc bulge. Slight effacement of thecal sac. Nocanal stenosis or neural foraminal narrowing. At C5-6 there is diffuse disc bulge is present. There is moderate canalstenosis. Posterior osteophytic ridging is present. Cord compression isnot excluded. Due to osteoarthritic changes there are bilateral neuralforaminal narrowing changes. The findings may be similar to increasedcompared back to prior MRI of July 18, 2024. MRI recommended forfurther evaluation. At C6-7 minimal disc bulge is suggested. Slight effacement of thecal sacis suggested. No significant central canal stenosis or neural foraminalnarrowing. No significant canal stenosis or neural foraminal narrowing is present atC7-T1. IMPRESSION: Degenerative changes of the cervical spine are present in the cervicalspine, greatest at C5-6. There is suspected moderate canal stenosis andbilateral neural foraminal narrowing. There are posterior osteophytes arepresent. Cord compression is not excluded. Findings may be similar toincreased compared back to prior MRI July 18, 2024. Follow-up MRIrecommended. Referred By: Interpreted By: Guanakito Liu MD, 07/17/2025 8:10 AM Audrey Bahena MD CT Final Result from Last 3 Months Additional Health Concerns Infection Onset Date Last Indicated MRSA 04/05/2017 04/05/2017 [place] [address] [place] [address] MEDICARE Care Teams Contracting Support Specialist Relationship Specialty Start Date End Date Gaby Calix MD [address] [facility] [address] [place] [address] PCP - General FAMILY PRACTICE 11/03/21 Contreras Ramesh MD Three [facility] [address] [place] [address] [place] [employer] Underwriter CARDIOVASCULAR DISEASE 05/17/17
[2025-07-25 11:01] VITALS: BP 112/72; PULSE 81; RESP 18; TEMP 35.9; O2SAT 100
--- NOTE | 2025-07-25 11:08 | ED.URI ---
HPI - URI/Sore Throat General Chief Complaint: Upper Respiratory Infection Stated Complaint: Cough Patient presents to the [facility] with complaints of changes to recent symptoms in the last couple days. Patient noted worsening sinus pressure and nasal congestion over the last 2 days. Patient was recently evaluated at another facility and started on cefdinir and prednisone taper for her sinus symptoms and COPD. Patient reports taking her daily inhaler and albuterol as needed as well as Mucinex. Patient does not has been is ill with similar symptoms and believes this got worse due to 's illness. No other known sick contacts. Denies fever, chills, body aches, chest pain, nausea, vomiting, diarrhea, or dizziness. Related Data Home Medications ?Medication ?Instructions ?Recorded ?Confirmed ?Last Taken ?Type atorvastatin 80 mg tablet 80 mg PO DAILY 07/14/19 04/29/25 Unknown History venlafaxine 100 mg tablet 100 mg PO TID 07/14/19 04/29/25 Unknown History ferrous sulfate 325 mg (65 mg 325 mg DAILY 03/21/22 04/29/25 Unknown History iron) tablet (FeroSul) lamotrigine 200 mg tablet 200 mg BID 03/21/22 04/29/25 Unknown History lisinopril 40 mg tablet 40 mg DAILY 03/21/22 04/29/25 Unknown History norethindrone acetate 5 mg tablet 5 mg DAILY 03/21/22 04/29/25 Unknown History triamcinolone acetonide 0.1 % 1 applic topical DIRECTED 03/21/22 04/29/25 Unknown History topical cream acetaminophen 325 mg tablet 4,000 mg PO Q6H PRN Pain 04/05/22 04/29/25 Unknown History (Tylenol) mirtazapine 15 mg tablet 15 mg DAILY 08/09/22 04/29/25 Unknown History dexmethylphenidate 20 mg 20 mg PO DAILY 09/26/23 04/29/25 Unknown History capsule,extended release [id number] aripiprazole 10 mg tablet 10 mg PO DAILY 10/29/24 04/29/25 Unknown History clopidogrel 75 mg tablet 75 mg PO DAILY 10/29/24 04/29/25 Unknown History cyclobenzaprine 10 mg tablet 10 mg PO TID 10/29/24 04/29/25 Unknown History gabapentin 800 mg tablet 800 mg PO TID 10/29/24 04/29/25 Unknown History hydrochlorothiazide 12.5 mg capsule 12.5 mg PO DAILY 10/29/24 04/29/25 Unknown History omeprazole 40 mg capsule,delayed 40 mg PO DAILY 10/29/24 04/29/25 Unknown History release oxybutynin chloride 5 mg 5 mg PO DAILY 10/29/24 04/29/25 Unknown History tablet,extended release 24 hr gabapentin 300 mg capsule mg 01/01/25 04/29/25 Unknown History hydrocodone 5 mg-acetaminophen 325 tablet 07/25/25 Unknown History mg tablet Allergies Allergy/AdvReac Type Severity Reaction Status Date / Time codeine Allergy Mild HIVES,SYNCO Verified 06/10/24 14:35 PE miconazole Allergy Mild Hives Verified 01/01/25 18:08 acetaminophen Allergy Unknown RASH Verified 06/10/24 14:35 duloxetine (From Cymbalta) Allergy Other Verified 06/10/24 14:35 oxycodone (From Percocet) Allergy Rash Verified 06/10/24 14:35 varenicline (From Chantix) Allergy Other Verified 06/10/24 14:35 fluticasone AdvReac Intermediate lumps on Verified 06/10/24 14:35 tongue tramadol AdvReac Intermediate itchy, Verified 06/10/24 14:35 dizzy methocarbamol (From Robaxin) AdvReac Unknown Other Verified 06/10/24 14:36 MICONAZOLE NITRATE Allergy Unknown Hives Uncoded 06/10/24 14:35 OXYCODONE HCL Allergy Unknown RASH Uncoded 06/10/24 14:35 Review of Systems Constitutional: Constitutional: Denies chills, Reports fatigue, Denies fever(s) and Denies weakness Eyes: Eyes: Reports no additional eye complaints ENT: Denies vertigo, Denies dizziness, Reports nasal congestion and Reports sore throat Comments: Sinus pain Cardiovascular: Cardiovascular: Reports no additional cardiovascular complaints Respiratory: Respiratory: Reports as per HPI, Reports chest congestion, Reports cough, Reports dyspnea and Reports wheezing Gastrointestinal: Gastrointestinal: Reports no additional gastrointestinal complaints Genitourinary: Genitourinary: Reports no additional female genitourinary complaints Musculoskeletal: Musculoskeletal: Reports as per HPI, Denies back pain and Denies myalgias Integumentary/Breasts: Skin/Breast: Reports as per HPI, Denies pruritus, Denies erythema and Denies rash Neurologic: Reports as per HPI, Denies vertigo, Denies dizziness, Reports headache(s), Denies numbness and Denies weakness Psychiatric: Psychiatric: Reports no additional psychiatric complaints Endocrine: Endocrine: Reports no additional endocrine complaints Hematologic/Lymphatic: Hematologic/Lymphatic: Reports no additional hematologic/lymphatic complaints Allergic/Immunologic: Allergic/Immunologic: Reports as per HPI and Reports wheezing PMFSH Past Medical History Medical History COPD (chronic obstructive pulmonary disease) Severe bipolar disorder Impaired glucose tolerance HTN (hypertension) GERD (gastroesophageal reflux disease) Fibromyalgia Chronic pain syndrome Chronic migraine Anxiety History of cervical cancer Asthma Body mass index (bmi) 38.0-38.9, adult (09/19/18) Surgical History Surgical History History of appendectomy History of Family History Family History Father Family history of mental disorder Cerebrovascular accident Family history of Alzheimer's disease Family history of cardiovascular disease Heart disease Mother Hypertension Sibling Heart disease Narcolepsy Daughter Obesity Bipolar disorder Schizophrenia Other Asthma Depression Family history of alcoholism Family history of bipolar disorder Family history of lung disease Family history of malignant neoplasm of uterus Family history of migraine headaches Family history of obesity Family history of schizophrenia Family history of seizure disorder Social History Social History Smoking packs per day: 0.50 Smoking cigarettes per day: 10.0 Years smoked: 33 Smoking pack-years: 16.50 Smoking status: Current every day smoker Tobacco type: cigarettes Second hand tobacco smoke exposure: Yes Alcohol intake: never Exam Const: General: no acute distress and ill appearing Nutritional Appearance: well nourished Orientation/consciousness: patient oriented x3 Limitations: no limitations Other: fatigued HENMT: Head: normal to inspection Ears: external ears normal and TM's abnormal bilaterally ( moderate dullness and mild erythema noted bilaterally) Face/Nose/Sinus: Normal external nose present, Normal nares present and Nasal discharge present clear Face and sinus: normal facial exam and sinus tenderness frontal and maxillary Mouth: Yes Normal oral and palatal mucosa present, Yes lip normal and Yes moist mucous membranes Throat: posterior oropharynx abnormal ( moderate edema and erythema noted no exudate) Neck: Neck: normal visual inspection and no lymphadenopathy Resp: Effort & Inspection: normal respiratory effort Auscultation: rhonchi left upper and right upper, wheezes scattered wheezes and diminished lung sounds Cardio: Rate: regular rate Rhythm: regular rhythm Skin: General skin exam: normal color Rashes: no rashes Wounds: no wounds Neuro: General: patient oriented x3 Speech: normal speech Gait exam (Neuro): Normal gait present Psych: Mental Status: mental status grossly normal Affect: normal affect Attitude: cooperative Course Course Level of Care: Express Care Visit Vital Signs Vital signs: Vital Signs Temperature 96.6 F L 07/25/25 11:01 Pulse Rate 81 07/25/25 11:01 Respiratory Rate 18 07/25/25 11:01 Blood Pressure 112/72 07/25/25 11:01 Pulse Oximetry 100 07/25/25 11:01 Oxygen Delivery Room Air 07/25/25 11:01 Temperature 96.6 F L 07/25/25 11:01 Pulse Rate 81 07/25/25 11:01 Respiratory Rate 18 07/25/25 11:01 Blood Pressure 112/72 07/25/25 11:01 Pulse Oximetry 100 07/25/25 11:01 Oxygen Delivery Room Air 07/25/25 11:01 MDM - URI/Sore Throat MDM Narrative Medical decision making narrative: Spoke with patient about her current medications noted given her history of COPD and current symptoms will change to doxycycline. Recommended patient to take only 1 prescription of the steroids and continue her daily inhalers. The patient was evaluated by myself in the express care. History is obtained from patient who is an independent historian and physical exam was performed. Available medical records were reviewed at this time. Exam findings show no acute concerns or changes; patient is non-toxic appearing and is in no distress. Patient is appropriate for outpatient treatment and follow-up. I have evaluated and discussed social determinants of health with the patient that could potentially impact subsequent diagnosis and treatment plans. Differential diagnosis and treatment plan were discussed with the patient. Patient agrees with discussion and after shared medical decision making agrees with plan of care. All questions were answered to the patient's satisfaction. Differential Diagnosis Differential diagnosis: Likely upper respiratory infection, croup, otitis media, sinusitis, viral infection, bronchitis, influenza and pharyngitis Medical Records Attestation: I reviewed the patient's medical records. Discharge Plan Discharge Clinical Impression: Acute exacerbation of chronic obstructive pulmonary disease Patient Disposition: Home Condition: Stable Instructions: Antibiotic Form, COPD (Chronic Obstructive Pulmonary Disease) (ED), Chronic Bronchitis (ED) Additional Instructions: Take the antibiotics as directed for the entire course. Do not miss any doses. What you are taking antibiotics and is recommended to take a probiotic or have yogurt daily to return the good gut bacteria to your system. This can also help with acute diarrhea while taking antibiotics. It can take 24-48 hours for the antibiotics to start to relieve your symptoms continue to take these medications to help with various symptoms: Tylenol or Motrin for pain, headache, or fever Flonase/fluticasone or Nasacort/triamcinolone nasal spray- helps with congestion and nasal drainage. Sudafed/pseudoephedrine helps with sinus pain and congestion. Caution with high blood pressure. Use a humidifier or vaporizer at night. Drink plenty of water. 8-10 glasses per day. Mucinex/[place] directed and be sure to take with 8oz of water. Warm compresses over the forehead and cheeks to promote sinus drainage. Return to urgent care or go to the ER for new or worsening symptoms. Follow up with Primary provider if not improved after 1 week. Patient Language: [place]i Prescriptions: New doxycycline monohydrate 100 mg capsule 100 mg PO BID Qty: 20 0RF No Action gabapentin 300 mg capsule hydrocodone-acetaminophen 5-325 mg tablet lamotrigine 200 mg tablet 200 mg BID triamcinolone acetonide 0.1 % cream 1 applic TOPICAL DIRECTED ferrous sulfate [FeroSul] 325 mg (65 mg iron) tablet 325 mg DAILY norethindrone acetate 5 mg tablet 5 mg DAILY lisinopril 40 mg tablet 40 mg DAILY mirtazapine 15 mg tablet 15 mg DAILY albuterol sulfate 0.63 mg/3 mL solution for nebulization 0.63 mg inhalation Q6H Qty: 75 0RF dexmethylphenidate 20 mg capsule,ER biphasic 50-50 20 mg PO DAILY cyclobenzaprine 10 mg tablet 10 mg PO TID clopidogrel 75 mg tablet 75 mg PO DAILY hydrochlorothiazide 12.5 mg capsule 12.5 mg PO DAILY oxybutynin chloride 5 mg tablet extended release 24hr 5 mg PO DAILY aripiprazole 10 mg tablet 10 mg PO DAILY gabapentin 800 mg tablet 800 mg PO TID omeprazole 40 mg capsule,delayed release(DR/EC) 40 mg PO DAILY Anoro Ellipta 62.5-25 mcg/actuation blister with device See Rx Instructions .ROUTE .COMPLEX Qty: 60 11RF Dose Instruction: INHALE 1 PUFF BY MOUTH EVERY 24 HOURS Rx Instructions: INHALE 1 PUFF BY MOUTH EVERY 24 HOURS acetaminophen [Tylenol] 325 mg tablet 4,000 mg PO Q6H PRN (Reason: Pain) (DME) inhalational spacing device Spacer See Rx Instructions .Route Qty: 1 0RF Rx Instructions: As directed ipratropium bromide 0.02 % solution 2.5 ml INHALATION BID PRN (Reason: shortness of breath or wheezing) Qty: 150 2RF ipratropium-albuterol 0.5 mg-3 mg(2.5 mg base)/3 mL solution for nebulization 3 ml inhalation QID PRN (Reason: shortness of breath) Qty: 90 0RF atorvastatin 80 mg tablet 80 mg PO DAILY venlafaxine 100 mg tablet 100 mg PO TID (DME) nebulizer accessories Kit See Rx Instructions .Route Qty: 1 0RF Rx Instructions: As directed (DME) nebulizers Misc See Rx Instructions .Route Qty: 1 0RF Rx Instructions: As directed azelastine 137 mcg (0.1 %) spray,non-aerosol 1 spray intranasal Q12H Qty: 30 5RF Rx Instructions: administer into each nostril benzonatate 200 mg capsule 200 mg PO TID PRN (Reason: cough) Qty: 90 2RF montelukast 10 mg tablet 10 mg PO QHS Qty: 30 11RF albuterol sulfate 90 mcg/actuation HFA aerosol inhaler See Rx Instructions .ROUTE .COMPLEX Qty: 8.5 2RF Dose Instruction: INHALE 1-2 PUFFS EVERY 4 - 6 HOURS NEEDED FOR SHORTNESS OF BREATH OR WHEEZING Rx Instructions: INHALE 1-2 PUFFS EVERY 4 - 6 HOURS NEEDED FOR SHORTNESS OF BREATH OR WHEEZING cefdinir 300 mg capsule 300 mg PO Q12H 10 Days Qty: 20 0RF prednisone 10 mg tablet 10 mg PO DIRECTED Qty: 34 0RF Rx Instructions: Take 4 tablets by mouth daily for 4 days, then 3 tablets for 3 days, 2 tablets for 3 days, 1 tablet for 3 days Follow-up/Referrals: Hernandez,Melanie Alonzo MD [Primary Care Provider, Unknown] Time of Disposition: 11:10
== END 2025-07-25 11:15 | disposition home or self-care (01) ==
PROVIDERS: Emergency Provider Nurse Practitioner Family; PCP Family Medicine
DX: J44.1 Chronic obstructive pulmonary disease with (acute) exacerbation (principal); F17.210 Nicotine dependence, cigarettes, uncomplicated; I10 Essential (primary) hypertension; K21.9 Gastro-esophageal reflux disease without esophagitis; M79.7 Fibromyalgia; F41.9 Anxiety disorder, unspecified; F31.9 Bipolar disorder, unspecified; R73.01 Impaired fasting glucose; Z85.41 Personal history of malignant neoplasm of cervix uteri
CPT/HCPCS: 99213; G0463